=== PATIENT | female | born 1955 | race Caucasian/White ===

== ENCOUNTER 2020-03-12 07:54 | Outpatient (CLI) | payer OTHER, SELFPAY ==
--- NOTE | ~2020-03-12 | US_ITS ---
EXAMINATION: US carotid duplex BI DATE: 03/12/2020 09:09 INDICATION: Carotid stenosis TECHNIQUE: Grayscale, color Doppler, and pulsed Doppler images of the cervical carotid arteries were obtained. The degree of vessel stenosis is placed in one of the following categories: normal, <50%, 5 0-69%, >=70% but less than near-occlusion, near-occlusion, or total occlusion. Note that percent sten osis relative to normal distal artery lumen diameter is indirectly measured from velocity measurement s as described by Saurabh, et al. Radiology 2003; 229:340-346. COMPARISON: 08/22/2019 FINDINGS: RIGHT: The right common carotid artery (CCA) peak systolic velocity (PSV) is 87 cm/s. The right internal car otid artery (ICA) PSV is 140 cm/s. The right ICA end-diastolic velocity (EDV) is 22 cm/s. The right I CA/CCA PSV ratio is 1.6. Grayscale and color Doppler images yield an estimate of 50-69% diameter redu ction from plaque in the ICA. The external carotid artery (ECA) PSV is 149 cm/s. There is antegrade f low in the right vertebral artery. LEFT: The left CCA PSV is 147 cm/s. The left ICA PSV is 135 cm/s. The left ICA EDV is 19 cm/s. The left ICA /CCA PSV ratio is 0.9. Grayscale and color Doppler images yield an estimate of 50-69% diameter reduct ion from plaque in the ICA. The ECA PSV is 303 cm/s. There is antegrade flow in the left vertebral ar aydee. IMPRESSION: 1. 50-69% stenosis in the right internal carotid artery. 2. 50-69% stenosis in the left internal carotid artery. Reviewed, dictated and finalized at location A.
== END 2020-03-12 07:55 | disposition home or self-care (01) ==
LOC: CHSIMG 07:55
PROVIDERS: PCP Internal Medicine; Visit Provider Internal Medicine
DX: I65.23 Occlusion and stenosis of bilateral carotid arteries (principal); M81.0 Age-related osteoporosis without current pathological fracture
CPT/HCPCS: 93880

== ENCOUNTER 2020-03-15 08:47 | Outpatient (CLI) | payer OTHER, SELFPAY ==
--- NOTE | ~2020-03-15 | MM_ITS ---
EXAMINATION: MM screening nadiya BI w silvia HISTORY: Screening mammogram TECHNIQUE: Craniocaudal and mediolateral oblique 3-D tomosynthesis images were obtained and synthetic 2-D images were generated. CAD analysis was submitted and interpreted. COMPARISON: 02/07/2019, 02/04/2018, 02/02/2017 bilateral digital screening mammogram examinations BREAST PARENCHYMAL COMPOSITION: There are scattered areas of fibroglandular density. FINDINGS: There is no evidence of suspicious mass, calcification, or architectural distortion to sugg est malignancy in either breast. There has been no suspicious interval change. IMPRESSION: 1. No mammographic evidence of malignancy. 2. Recommend routine screening mammography in one year. BI-RADS Category 1: Negative Reviewed, dictated and finalized at location A.
--- NOTE | ~2020-03-15 | DEXA_ITS ---
BMD(1) Young-Adult(2) Age-Matched(3) Region (g/cm2) T-score Z-score WHO Classification L1 1.139 0.0 1.7 Normal L2 1.068 -1.2 0.6 Osteopenia L3 1.184 -0.3 1.5 Normal L4 1.008 -1.6 0.1 Osteopenia L1-L4 1.095 -0.8 0.9 Normal Trend: L1-L4 Change vs Change vs Measured Age BMD(1) Baseline Previous Date (years) (g/cm2) (%) (%) 03/15/2020 64.3 1.095 6.4* 2.2 02/04/2018 62.2 1.071 4.1* 4.1* 12/20/2015 [age] 1.029 baseline - * - Indicates significant change based on 95% confidence interval. 1 - Statistically 68% of repeat scans fall within 1SD (+- 0.010 g/cm2 for AP Spine L1-L4) 2 - [place] (Combined NHANES (ages 20-30) / Clipsure (ages 20-40)) AP Spine Reference Population (v112) 3 - Matched for Age, Weight (females 25-100 kg), Ethnic 11 - World Health Organization - Definition of Osteoporosis and Osteopenia for Women: Normal = T-score at or above -1.0 SD; Osteopenia = T-score between -1.0 and -2.5 SD; Osteoporosis = T-score at or below -2.5 SD; (WHO definitions only apply when a young healthy Women reference database is used to determine T-scores.) Printed: 03/15/2020 9:47:45 AM (13.60)76:3.00:50.00:12.0 0.00:10.74 0.60x1.05 19.4:%Fat=27.1% 0.00:0.00 0.00:0.00 Filename: [id number] Scan Mode: Standard;OneScan 37.0 [employer] [id number] BMD(1) Young-Adult(2,7) Age-Matched(3) Region (g/cm2) T-score Z-score WHO Classification Neck Left 0.744 -2.1 -0.6 Osteopenia Right 0.727 -2.2 -0.7 Osteopenia Mean 0.736 -2.2 -0.6 Osteopenia Difference 0.017 -0.1 -0.1 - Total Left 0.730 -2.2 -0.9 Osteopenia Right 0.720 -2.3 -1.0 Osteopenia Mean 0.725 -2.2 -1.0 Osteopenia Difference 0.011 -0.1 -0.1 - Hip [place] Length Comparison (mm) (Right = 101.0 mm) (Mean = 105.2 mm) (Left = 102.4 mm) Trend: Total Mean Change vs Change vs Measured Age BMD(1) Baseline Previous Date (years) (g/cm2) (%) (%) 03/15/2020 64.3 0.725 baseline - 1 - Statistically 68% of repeat scans fall within 1SD (+- 0.010 g/cm2 for DualFemur Total) 2 - [place] (Combined NHANES (ages 20-30) / Clipsure (ages 20-40)) Femur Reference Population (v112) 3 - Matched for Age, Weight (females 25-100 kg), Ethnic 7 - DualFemur Total T-score difference is 0.1. Asymmetry is None. 11 - World Health Organization - Definition of Osteoporosis and Osteopenia for Women: Normal = T-score at or above -1.0 SD; Osteopenia = T-score between -1.0 and -2.5 SD; Osteoporosis = T-score at or below -2.5 SD; (WHO definitions only apply when a young healthy Women reference database is used to determine T-scores.) Printed: 03/15/2020 9:47:46 AM (13.60); Filename: [id number]; Right Femur; 17.0:%Fat=38.5%; Neck Angle (deg)= 67; Scan Mode: Standard 37.0 uGy; Left Femur; 16.7:%Fat=39.3%; Neck Angle (deg)= 56; Scan Mode: Standard 37.0 uGy [employer] [id number] Dear Ibeth Roberson, Your patient Nadeen Hernandez completed a BMD test on 03/15/2020 using the [employer] DXA System (analysis version: 13.60) manufactured by [employer]. The following summarizes the results of our evaluation. PATIENT BIOGRAPHICAL: Name: Nadeen Hernandez
[2020-03-15 09:08] LABS: Appearance Urine Cloudy (Clear); Bilirubin Urine Negative (Negative); Color Urine Yellow (Yellow); Glucose Urine UA Negative (Negative); Ketones Urine Negative (Negative); Leukocyte Esterase Ur 3+ (Negative); Nitrate Urine Negative (Negative); Protein Urine 1+ (Negative)
[2020-03-15 09:21] LABS: Add Urine Microscopic? YES; Bacteria Urine 4+ /hpf; Blood Urine Trace-Intact (Negative); Squamous Epithelial Cell Urine Many /hpf (Few); Trichomonas Urine Present /hpf; WBC Urine 16-20 /hpf (0-3)
[2020-03-15 09:22] LABS: Mucus Urine Few /lpf
[2020-03-15 09:39] LABS: Hemoglobin A1C 5.4 % (<5.7)
[2020-03-15 09:47] LABS: Alanine Aminotransferase 18 U/L (14-59); Albumin Level 4.7 g/dL (3.4-5.0); Alkaline Phosphatase 53 U/L (46-116); Anion Gap 13.6 mmol/L (7-16); Aspartate Amino Transferase 24 U/L (15-37); Bilirubin,Total 0.6 mg/dL (0.00-1.00); Blood Urea Nitrogen 14 mg/dL (7-18); Calcium 9.4 mg/dL (8.5-10.1); Carbon Dioxide 29 mmol/L (21-32); Chloride 95 mmol/L (98-108); Cholesterol 220 mg/dL (0-200); Creatine Kinase 75 U/L (26-192); Estimated Glomerular Filt Rate 55; Glucose 95 mg/dL (70-99); HDL Direct 100 mg/dL (40-60); LDL Cholesterol Calculated 106 mg/dL (<130); Osmolality Calculated 276 mOsm/kg (285-295); Potassium 4.6 mmol/L (3.5-5.1); Sodium 133 mmol/L (136-145); Total Protein 7.9 g/dL (6.4-8.2); Triglycerides 70 mg/dL (0-150)
== END 2020-03-15 08:48 | disposition home or self-care (01) ==
LOC: CHSIMG 08:49
PROVIDERS: PCP Internal Medicine; Visit Provider Internal Medicine
DX: Z12.31 Encounter for screening mammogram for malignant neoplasm of breast (principal); M81.0 Age-related osteoporosis without current pathological fracture; I65.29 Occlusion and stenosis of unspecified carotid artery; I10 Essential (primary) hypertension; R73.01 Impaired fasting glucose
CPT/HCPCS: 36415; 77063; 77067; 77080; 80053; 80061; 81001; 82550; 83036

== ENCOUNTER 2020-09-23 08:29 | Outpatient (CLI) | payer OTHER, SELFPAY ==
[2020-09-23 08:44] LABS: Basophils Absolute Auto 0.05 K/mm3 (0.00-0.10); Basophils Percent Auto 0.5 % (0.0-1.0); Eosinophils Absolute Auto 0.09 K/mm3 (0.02-0.50); Hemoglobin 13.8 g/dL (12.0-15.0); Immature Granulocyte Absolute 0.03 K/mm3 (0.00-0.00); Immature Granulocyte Percent A 0.3 % (0.0-0.0); Lymphocytes Absolute Auto 2.72 K/mm3 (1.10-4.50); Lymphocytes Percent Auto 29.6 % (18.0-42.0); Mean Corpuscular HGB Conc 33.7 g/dL (32.0-36.0); Mean Corpuscular Hemoglobin 31.7 pg (27.0-31.0); Mean Corpuscular Volume 94.3 fL (78.0-102.0); Mean Platelet Volume 9.9 fl (9.2-11.8); Monocytes Absolute Auto 0.58 K/mm3 (0.10-0.90); Monocytes Percent Auto 6.3 % (2.0-11.0); Neutrophils Absolute Auto 5.7 K/mm3 (1.7-7.2); Neutrophils Percent Auto 62.3 % (50.0-70.0); Platelet Count Result 260 K/mm3 (150-420); Red Blood Count 4.35 M/mm3 (4.20-5.40); Red Cell Distribution Width 13.2 % (11.6-14.4); White Blood Count 9.2 K/mm3 (4.8-10.8)
[2020-09-23 08:52] LABS: Appearance Urine Clear (Clear); Bilirubin Urine Negative (Negative); Color Urine Yellow (Yellow); Glucose Urine UA Negative (Negative); Ketones Urine Trace (Negative); Leukocyte Esterase Ur 1+ LEU/UL (Negative); Nitrate Urine Negative (Negative); Protein Urine 1+ (Negative); Specific Grav Ur 1.025 (1.010-1.020); Urobilinogen Urine 0.2 mg/dL (0.2-1.0)
[2020-09-23 08:55] LABS: Hemoglobin A1C 5.1 % (<5.7)
[2020-09-23 09:09] LABS: Add Urine Microscopic? YES; Blood Urine Trace-Intact (Negative); Squamous Epithelial Cell Urine Moderate /hpf (Few); WBC Urine 16-20 /hpf (0-3)
[2020-09-23 09:10] LABS: Bacteria Urine 2+ /hpf; Trichomonas Urine Present /hpf
[2020-09-23 09:40] LABS: Alanine Aminotransferase 18 U/L (14-59); Albumin Level 4.5 g/dL (3.4-5.0); Alkaline Phosphatase 56 U/L (46-116); Anion Gap 11 mmol/L (8-16); Aspartate Amino Transferase 21 U/L (15-37); Bilirubin,Total 0.5 mg/dL (0.00-1.00); Blood Urea Nitrogen 19 mg/dL (7-18); Calcium 9.6 mg/dL (8.5-10.1); Carbon Dioxide 27 mmol/L (21-32); Chloride 97 mmol/L (98-108); Cholesterol 222 mg/dL (0-200); Creatine Kinase 73 U/L (26-192); Estimated Glomerular Filt Rate 51; Glucose 103 mg/dL (70-99); HDL Direct 92 mg/dL (40-60); LDL Cholesterol Calculated 117 mg/dL (<130); Osmolality Calculated 282 mOsm/kg (285-295); Potassium 4.5 mmol/L (3.5-5.1); Sodium 135 mmol/L (136-145); Total Protein 7.9 g/dL (6.4-8.2); Triglycerides 67 mg/dL (0-150)
[2020-09-23 10:07] LABS: Microalbumin Urine Random 394.8 mg/L
[2020-09-23 10:08] LABS: MALB Creatinine Ratio 335.7 mg/g (0-30)
[2020-10-01 13:09] LABS: Vitamin D 25 Hydroxy 44 ng/mL (30-100)
== END 2020-09-23 08:30 | disposition home or self-care (01) ==
LOC: CHSLAB 08:30
PROVIDERS: PCP Internal Medicine; Visit Provider Internal Medicine
DX: E78.5 Hyperlipidemia, unspecified (principal); I10 Essential (primary) hypertension; M81.0 Age-related osteoporosis without current pathological fracture; R73.01 Impaired fasting glucose; R82.90 Unspecified abnormal findings in urine
CPT/HCPCS: 36415; 80053; 80061; 81001; 82043; 82306; 82550; 83036; 85025; 87086

== ENCOUNTER 2021-01-18 08:38 | Outpatient (CLI) | payer OTHER, SELFPAY | END 2021-01-18 08:39 | disposition home or self-care (01) | LOC: CHSCOVIDVC 08:38 | PROVIDERS: PCP Internal Medicine | DX: Z23 Encounter for immunization (principal) | CPT/HCPCS: 0011A; 91301 ==

== ENCOUNTER 2021-02-15 08:38 | Outpatient (CLI) | payer OTHER, SELFPAY | END 2021-02-15 08:39 | disposition home or self-care (01) | LOC: CHSCOVIDVC 08:38 | PROVIDERS: PCP Internal Medicine | DX: Z23 Encounter for immunization (principal) | CPT/HCPCS: 0012A; 91301 ==

== ENCOUNTER 2021-03-18 07:46 | Outpatient (CLI) | payer OTHER, MEDICARE, SELFPAY ==
--- NOTE | ~2021-03-18 | MM_ITS ---
EXAMINATION: MM screening [facility] BI w silvia HISTORY: Screening TECHNIQUE: Craniocaudal and mediolateral oblique 3-D tomosynthesis images were obtained and synthetic 2-D images were generated. CAD analysis was submitted and interpreted. COMPARISON: Comparison to multiple prior studies sequentially, with oldest reviewed study dated 09/2015. BREAST PARENCHYMAL COMPOSITION: There are scattered areas of fibroglandular density. FINDINGS: There is no evidence of suspicious mass, calcification, or architectural distortion to sugg est malignancy in either breast. There has been no suspicious interval change. IMPRESSION: 1. No mammographic evidence of malignancy. 2. Recommend routine screening mammography in one year. BI-RADS Category 1: Negative Reviewed, dictated and finalized at location A.
--- NOTE | ~2021-03-18 | US_ITS ---
EXAMINATION: US carotid duplex BI DATE: 03/18/2021 10:21 INDICATION: Bilateral carotid stenosis TECHNIQUE: Grayscale, color Doppler, and pulsed Doppler images of the cervical carotid arteries were obtained. The degree of vessel stenosis is placed in one of the following categories: normal, <50%, 5 0-69%, >=70% but less than near-occlusion, near-occlusion, or total occlusion. Note that percent sten osis relative to normal distal artery lumen diameter is indirectly measured from velocity measurement s as described by Saurabh, et al. Radiology 2003; 229:340-346. COMPARISON: 03/12/2020 FINDINGS: RIGHT: The right common carotid artery (CCA) peak systolic velocity (PSV) is 72 cm/s. The right internal car otid artery (ICA) PSV is 94 cm/s. The right ICA end-diastolic velocity (EDV) is 12 cm/s. The right IC A/CCA PSV ratio is 1.3. Grayscale and color Doppler images yield an estimate of <50% diameter reducti on from plaque in the ICA. The external carotid artery (ECA) PSV is 123 cm/s. There is antegrade flow in the right vertebral artery. LEFT: The left CCA PSV is 157 cm/s. The left ICA PSV is 130 cm/s. The left ICA EDV is 17 cm/s. The left ICA /CCA PSV ratio is 0.8. Grayscale and color Doppler images yield an estimate of 50-69% diameter reduct ion from plaque in the ICA. The ECA PSV is 190 cm/s. There is antegrade flow in the left vertebral ar aydee. IMPRESSION: 1. <50% stenosis in the right internal carotid artery. 2. 50-69% stenosis in the left internal carotid artery. Reviewed, dictated and finalized at location A.
== END 2021-03-18 07:47 | disposition home or self-care (01) ==
LOC: CHSIMG 07:50
PROVIDERS: PCP Internal Medicine; Visit Provider Internal Medicine
DX: I65.23 Occlusion and stenosis of bilateral carotid arteries (principal); Z12.31 Encounter for screening mammogram for malignant neoplasm of breast
CPT/HCPCS: 77063; 77067; 93880

== ENCOUNTER 2021-03-19 08:09 | Outpatient (CLI) | payer OTHER, MEDICARE, SELFPAY ==
[2021-03-19 08:22] LABS: Add Urine Microscopic? YES; Appearance Urine Sl Cloudy (Clear); Bilirubin Urine Negative (Negative); Blood Urine Negative (Negative); Color Urine Light Yellow (Yellow); Glucose Urine UA Negative (Negative); Ketones Urine Negative (Negative); Leukocyte Esterase Ur 1+ (Negative); Nitrate Urine Negative (Negative); Protein Urine Trace (Negative); Urobilinogen Urine 0.2 mg/dL (0.2-1.0); pH Urine 6.5 (5.0-8.0)
[2021-03-19 08:42] LABS: Hemoglobin A1C 5.4 % (<5.7)
[2021-03-19 08:43] LABS: Bacteria Urine 2+ /hpf; RBC Urine 0-2 /hpf (0-2); Squamous Epithelial Cell Urine Moderate /hpf (Few); Trichomonas Urine Present /hpf
[2021-03-19 08:46] LABS: Creatinine Urine 59.92 mg/dL (40-278)
[2021-03-19 08:47] LABS: MALB Creatinine Ratio 203.4 mg/g (0-30); Microalbumin Urine Random 121.9 mg/L
[2021-03-19 09:33] LABS: Alanine Aminotransferase 19 U/L (14-59); Albumin Level 4.2 g/dL (3.4-5.0); Alkaline Phosphatase 49 U/L (46-116); Anion Gap 11 mmol/L (8-16); Aspartate Amino Transferase 38 U/L (15-37); Bilirubin,Total 0.7 mg/dL (0.00-1.00); Blood Urea Nitrogen 14 mg/dL (7-18); Calcium 9.2 mg/dL (8.5-10.1); Carbon Dioxide 27 mmol/L (21-32); Chloride 97 mmol/L (98-108); Cholesterol 204 mg/dL (0-200); Creatine Kinase 64 U/L (26-192); Estimated Glomerular Filt Rate 55; Free T4 Free Thyroxine 1.17 ng/dL (0.76-1.46); Glucose 102 mg/dL (70-99); HDL Direct 94 mg/dL (40-60); LDL Cholesterol Calculated 97 mg/dL (<130); Osmolality Calculated 280 mOsm/kg (285-295); Potassium 4.4 mmol/L (3.5-5.1); Sodium 135 mmol/L (136-145); Thyroid Stimulating Hormone 0.83 uIU/mL (0.36-3.74); Total Protein 7.3 g/dL (6.4-8.2); Triglycerides 67 mg/dL (0-150)
[2021-03-22 12:52] LABS: Vitamin D 25 Hydroxy 48 ng/mL (30-100)
== END 2021-03-19 08:10 | disposition home or self-care (01) ==
LOC: CHSLAB 08:11
PROVIDERS: PCP Internal Medicine; Visit Provider Internal Medicine
DX: R73.01 Impaired fasting glucose (principal); I12.9 Hypertensive chronic kidney disease with stage 1 through stage 4 chronic kidney disease, or unspecified chronic kidney disease; E78.2 Mixed hyperlipidemia; M81.0 Age-related osteoporosis without current pathological fracture; N18.1 Chronic kidney disease, stage 1; E03.4 Atrophy of thyroid (acquired)
CPT/HCPCS: 36415; 80053; 80061; 81001; 82043; 82306; 82550; 83036; 84439; 84443

== ENCOUNTER 2021-10-14 08:55 | Outpatient (CLI) | payer MEDICARE, OTHER, SELFPAY ==
[2021-10-14 09:36] LABS: Basophils Absolute Auto 0.05 K/mm3 (0.00-0.10); Basophils Percent Auto 0.6 % (0.0-1.0); Eosinophils Absolute Auto 0.17 K/mm3 (0.02-0.50); Eosinophils Percent Auto 1.9 % (1.0-6.0); Hematocrit 43.9 % (35.0-42.0); Hemoglobin 14.6 g/dL (11.7-13.8); Immature Granulocyte Absolute 0.04 K/mm3 (0.00-0.00); Immature Granulocyte Percent A 0.4 % (0.0-0.0); Lymphocytes Absolute Auto 3.01 K/mm3 (1.10-4.50); Lymphocytes Percent Auto 33.6 % (18.0-42.0); Mean Corpuscular HGB Conc 33.3 g/dL (32.0-36.0); Mean Corpuscular Hemoglobin 30.8 pg (27.0-31.0); Mean Corpuscular Volume 92.6 fL (78.0-102.0); Mean Platelet Volume 10.5 fl (9.2-11.8); Monocytes Absolute Auto 0.56 K/mm3 (0.10-0.90); Monocytes Percent Auto 6.3 % (2.0-11.0); Neutrophils Absolute Auto 5.1 K/mm3 (1.7-7.2); Neutrophils Percent Auto 57.2 % (50.0-70.0); Platelet Count Result 282 K/mm3 (150-420); Red Blood Count 4.74 M/mm3 (4.20-5.40); Red Cell Distribution Width 14.1 % (11.6-14.4)
[2021-10-14 09:39] LABS: Add Urine Microscopic? YES; Appearance Urine Clear (Clear); Bilirubin Urine Negative (Negative); Blood Urine Negative (Negative); Color Urine Light Yellow (Yellow); Glucose Urine UA Negative (Negative); Ketones Urine Negative (Negative); Leukocyte Esterase Ur 1+ (Negative); Nitrate Urine Negative (Negative); Protein Urine 1+ (Negative); Urobilinogen Urine 0.2 mg/dL (0.2-1.0); pH Urine 6.5 (5.0-8.0)
[2021-10-14 09:47] LABS: Hemoglobin A1C 5.5 % (<5.7)
[2021-10-14 10:00] LABS: RBC Urine 0-2 /hpf (0-2)
[2021-10-14 10:01] LABS: Bacteria Urine 1+ /hpf; Squamous Epithelial Cell Urine Few /hpf (Few); Trichomonas Urine Present /hpf
[2021-10-14 10:10] LABS: Alanine Aminotransferase 17 U/L (14-59); Albumin Level 4.4 g/dL (3.4-5.0); Alkaline Phosphatase 68 U/L (46-116); Anion Gap 10 mmol/L (8-16); Aspartate Amino Transferase 19 U/L (15-37); Bilirubin,Total 0.6 mg/dL (0.00-1.00); Blood Urea Nitrogen 18 mg/dL (7-18); Calcium 9.3 mg/dL (8.5-10.1); Carbon Dioxide 27 mmol/L (21-32); Chloride 99 mmol/L (98-108); Cholesterol 218 mg/dL (0-200); Creatine Kinase 61 U/L (26-192); Estimated Glomerular Filt Rate 43; Free T4 Free Thyroxine 1.09 ng/dL (0.76-1.46); Glucose 102 mg/dL (70-99); HDL Direct 74 mg/dL (40-60); LDL Cholesterol Calculated 126 mg/dL (<130); Osmolality Calculated 283 mOsm/kg (285-295); Potassium 4.4 mmol/L (3.5-5.1); Sodium 136 mmol/L (136-145); Thyroid Stimulating Hormone 1.69 uIU/mL (0.36-3.74); Total Protein 7.8 g/dL (6.4-8.2); Triglycerides 90 mg/dL (0-150)
[2021-10-18 14:44] LABS: Vitamin D 25 Hydroxy 47 ng/mL (30-100)
== END 2021-10-14 08:56 | disposition home or self-care (01) ==
LOC: CHSLAB 08:57
PROVIDERS: PCP Internal Medicine; Visit Provider Internal Medicine
DX: E78.2 Mixed hyperlipidemia (principal); I10 Essential (primary) hypertension; R73.01 Impaired fasting glucose; M81.0 Age-related osteoporosis without current pathological fracture
CPT/HCPCS: 36415; 80053; 80061; 81001; 82306; 82550; 83036; 84439; 84443; 84481; 85025

== ENCOUNTER 2021-11-26 10:34 | Outpatient (CLI) | payer MEDICARE, OTHER, SELFPAY ==
[2021-11-26 11:32] LABS: Anion Gap 11 mmol/L (8-16); Blood Urea Nitrogen 16 mg/dL (7-18); Calcium 9.2 mg/dL (8.5-10.1); Carbon Dioxide 27 mmol/L (21-32); Chloride 94 mmol/L (98-108); Estimated Glomerular Filt Rate 47; Glucose 118 mg/dL (70-99); Osmolality Calculated 276 mOsm/kg (285-295); Potassium 4.3 mmol/L (3.5-5.1); Sodium 132 mmol/L (136-145)
== END 2021-11-26 10:35 | disposition home or self-care (01) ==
LOC: CHSLAB 10:36
PROVIDERS: PCP Internal Medicine; Visit Provider Internal Medicine
DX: E86.0 Dehydration (principal)
CPT/HCPCS: 36415; 80048

== ENCOUNTER 2021-12-26 10:08 | Outpatient (CLI) | payer MEDICARE, OTHER, SELFPAY ==
[2021-12-26 11:19] LABS: Anion Gap 9 mmol/L (8-16); Blood Urea Nitrogen 17 mg/dL (7-18); Calcium 9.6 mg/dL (8.5-10.1); Carbon Dioxide 28 mmol/L (21-32); Chloride 97 mmol/L (98-108); Estimated Glomerular Filt Rate 44; Glucose 102 mg/dL (70-99); Osmolality Calculated 279 mOsm/kg (285-295); Potassium 4.4 mmol/L (3.5-5.1); Sodium 134 mmol/L (136-145)
== END 2021-12-26 10:09 | disposition home or self-care (01) ==
LOC: CHSLAB 10:09
PROVIDERS: PCP Internal Medicine; Visit Provider Internal Medicine
DX: E86.0 Dehydration (principal)
CPT/HCPCS: 36415; 80048

== ENCOUNTER 2022-01-08 10:33 | Outpatient (CLI) | payer MEDICARE, OTHER, SELFPAY ==
[2022-01-08 11:31] LABS: Anion Gap 10 mmol/L (8-16); Blood Urea Nitrogen 17 mg/dL (7-18); Calcium 9.5 mg/dL (8.5-10.1); Carbon Dioxide 26 mmol/L (21-32); Chloride 96 mmol/L (98-108); Estimated Glomerular Filt Rate 47; Glucose 96 mg/dL (70-99); Osmolality Calculated 275 mOsm/kg (285-295); Potassium 4.5 mmol/L (3.5-5.1); Sodium 132 mmol/L (136-145)
[2022-01-08 11:52] LABS: Erythrocyte Sedimentation Rate 18 mm/hr (0-20)
[2022-01-11 01:22] LABS: Kappa\\Lambda Light Chains 1.39 (0.26-1.65); Lambda Light Chain 18.1 mg/L (5.7-26.3)
[2022-01-11 20:21] LABS: Complement Total CH50 50 U/mL (31-60)
[2022-01-14 16:07] LABS: Albumin 4.8 g/dL (3.8-4.8); Alpha 1 Globulin 0.3 g/dL (0.2-0.3); Alpha 2 Globulin 0.8 g/dL (0.5-0.9); Beta 1 Globulin 0.5 g/dL (0.4-0.6); Protein, Total 7.7 g/dL (6.1-8.1)
== END 2022-01-08 10:34 | disposition home or self-care (01) ==
LOC: CHSLAB 10:35
PROVIDERS: PCP Internal Medicine; Visit Provider Internal Medicine
DX: I12.9 Hypertensive chronic kidney disease with stage 1 through stage 4 chronic kidney disease, or unspecified chronic kidney disease (principal); N18.31 Chronic kidney disease, stage 3a
CPT/HCPCS: 36415; 80048; 83883; 84155; 84165; 85652; 86038; 86162; 86334

== ENCOUNTER 2022-01-12 08:49 | Outpatient (CLI) | payer MEDICARE, OTHER, SELFPAY ==
--- NOTE | ~2022-01-12 | US_ITS ---
EXAMINATION: US retroperitoneal duplex ltd, US renal BI DATE: 01/12/2022 09:31 INDICATION: Stage III chronic kidney disease. TECHNIQUE: 1. Multiple grayscale and color Doppler images of the kidneys were obtained. 2. Multiple grayscale and pulsed Doppler images of the aorta and renal arteries were obtained. COMPARISON: None. FINDINGS: Kidneys: The right kidney measures 8.0 x 3.0 x 4.1 cm. The left kidney measures 10.2 x 5.6 x 4.5 cm. Diffuse b ilateral mild increased renal cortical echogenicity consistent with medical renal disease. There is n o hydronephrosis in either kidney. No stones identified. The bladder is normal. Renal arteries/vascular: The aorta peak systolic velocity is 57 cm/s. The right renal artery peak systolic velocity is 78 cm/s in the proximal segment, 83 cm/s in the mid segment, and 60 cm/s in the distal segment. The left javier al artery peak systolic velocity is 207 cm/s in the proximal segment, 186 cm/s in the mid segment, an d 148 cm/s in the distal segment. IMPRESSION: 1. Bilateral increased renal cortical echogenicity consistent with medical renal disease. No hydronep hrosis. 2. Elevated peak systolic velocities in the proximal left renal artery consistent with stenosis of >5 0-60%. Reviewed, dictated and finalized at location B. IMPRESSION: 1. Bilateral increased renal cortical echogenicity consistent with medical vick l disease. No hydronephrosis. 2. Elevated peak systolic velocities in the proximal left renal artery consiste nt with stenosis of >50-60%.
== END 2022-01-12 08:50 | disposition home or self-care (01) ==
LOC: CHSIMG 08:52
PROVIDERS: PCP Internal Medicine; Visit Provider Internal Medicine
DX: I12.9 Hypertensive chronic kidney disease with stage 1 through stage 4 chronic kidney disease, or unspecified chronic kidney disease (principal); N18.30 Chronic kidney disease, stage 3 unspecified
CPT/HCPCS: 76775; 93976

== ENCOUNTER 2022-03-26 07:52 | Outpatient (CLI) | payer MEDICARE, OTHER, SELFPAY ==
--- NOTE | ~2022-03-26 | US_ITS ---
EXAMINATION: US carotid duplex BI DATE: 03/26/2022 09:55 INDICATION: History of bilateral carotid stenosis. TECHNIQUE: Grayscale, color Doppler, and pulsed Doppler images of the cervical carotid arteries were obtained. The degree of vessel stenosis is placed in one of the following categories: normal, <50%, 5 0-69%, >=70% but less than near-occlusion, near-occlusion, or total occlusion. Note that percent sten osis relative to normal distal artery lumen diameter is indirectly measured from velocity measurement s as described by Saurabh, et al. Radiology 2003; 229:340-346. Notes: Normal: Peak systolic velocity <125 centimeters/sec and no plaque <50%. Peak systolic velocity <125 ( EDV <40; ICA/CCA PSV ratio <2.0; used these factors only a tandem lesions or low cardiac output or co ntralateral disease) 50-69 %: PSV 125-230 (EDV 40-100; ratio 2-4) >= 70% but less than near occlusion: PSV greater than 230 (EDV > 100; ratio> 4.0) Near Occlusion: PSV that is variable; markedly narrowed lumen Occlusion: Absent flow on color/spectral Doppler and no lumen on krause scale. COMPARISON: None. FINDINGS: RIGHT: The right common carotid artery (CCA) peak systolic velocity (PSV) is 84 cm/s. The right internal car otid artery (ICA) PSV is 125 cm/s. The right ICA end-diastolic velocity (EDV) is 24 cm/s. The right I CA/CCA PSV ratio is 1.5. The external carotid artery (ECA) PSV is 95 cm/s. There is antegrade flow in the right vertebral artery. LEFT: The left CCA PSV is 87 cm/s. The left ICA PSV is 238 cm/s. The left ICA EDV is 28 cm/s. The left ICA/ CCA PSV ratio is 2.7. The ECA PSV is 156 cm/s. There is antegrade flow in the left vertebral artery. IMPRESSION: 1. 50-69% stenosis in the right internal carotid artery by sonographic criteria. 2. Greater than or equal to 70% stenosis in the left internal carotid artery by sonographic criteria. Reviewed, dictated and finalized at location A. IMPRESSION: 1. 50-69% stenosis in the right internal carotid artery by sonographic criteria . 2. Greater than or equal to 70% stenosis in the left internal carotid artery by sonographic criteria.
--- NOTE | ~2022-03-26 | DEXA_ITS ---
Bone Density Report Name: MISHEL OJEDA Age: 66 Sex: Female Ethnicity: White Date of : 1955 Indication: postmenopausal; screening for osteoporosis; parental hip fracture; hysterectomy; Referring Provider: Ibeth Roberson Study: Bone densitometry was performed. Exam Date: March 26, 2022 Accession number: [id number] Bone Density: Region BMD T-score Z-score Classification AP Spine(L1, L2, L3) 0.940 -0.7 1.1 Normal Femoral Neck (Left) 0.575 -2.5 -0.9 Osteoporosis Total Hip (Left) 0.639 -2.5 -1.2 Osteoporosis Femoral Neck (Right) 0.464 -3.5 -1.9 Osteoporosis Total Hip (Right) 0.622 -2.6 -1.3 Osteoporosis Femoral Neck Mean 0.520 -3.0 -1.4 Osteoporosis Total Hip Mean 0.630 -2.6 -1.3 Osteoporosis World Health Organization criteria for BMD impression classify patients as: Normal (T-score at or above -1.0), Osteopenia (T-score between -1.0 and -2.5), or Osteoporosis (T-score at or below -2.5). 10-year Fracture Risk: FRAX not reported because: Some T-score for Spine Total or Hip Total or Femoral Neck at or below -2.5 Treated for osteoporosis Clinical Information Provided by Patient: Parent has had a hip fracture Smokes Is being treated for osteoporosis Has used the following medications: Fosamax (i.e. alendronate), Vitamin D Has the following medical conditions: Hysterectomy Patient maximum height was 64 Menopause Age: 42 No regular weight bearing exercise Drinks caffeinated beverages Onset of menses at age 15 Number of children 2 Impression: The patient has osteoporosis, based on the Right Femoral Neck T-score. The patient has risk factors, including: parental hip fracture, smoking. Discussion: It is important to ask patients whether they are taking their medications and to encourage continued and appropriate compliance with their osteoporosis therapies to reduce fracture risk. It is also important to review their risk factors and encourage appropriate calcium and vitamin D intakes, exercise, fall prevention and other lifestyle measures. Follow-Up: Consider a repeat BMD and Vertebral Fracture Assessment (VFA) exam in 2 years or sooner if medically necessary, to reassess this patient's status. Reported by: Dr. Cedrick Reed on 03/26/2022 8:32:00 AM. Reviewed, dictated and finalized at location A. [facility]
--- NOTE | ~2022-03-26 | MM_ITS ---
EXAMINATION: MM screening nadiya BI w silvia HISTORY: Screening TECHNIQUE: Craniocaudal and mediolateral oblique 3-D tomosynthesis images were obtained and synthetic 2-D images were generated. CAD analysis was submitted and interpreted. COMPARISON: Comparison to multiple prior studies sequentially, with oldest reviewed study dated 09/2015. BREAST PARENCHYMAL COMPOSITION: There are scattered areas of fibroglandular density. FINDINGS: There is no evidence of suspicious mass, calcification, or architectural distortion to sugg est malignancy in either breast. There has been no suspicious interval change. IMPRESSION: 1. No mammographic evidence of malignancy. 2. Recommend routine screening mammography in one year. BI-RADS Category 1: Negative Reviewed, dictated and finalized at location A.
== END 2022-03-26 07:53 | disposition home or self-care (01) ==
LOC: CHSIMG 07:54
PROVIDERS: PCP Internal Medicine; Visit Provider Internal Medicine
DX: M81.0 Age-related osteoporosis without current pathological fracture (principal); I65.23 Occlusion and stenosis of bilateral carotid arteries; Z12.31 Encounter for screening mammogram for malignant neoplasm of breast
CPT/HCPCS: 77063; 77067; 77080; 93880

== ENCOUNTER 2022-04-03 08:10 | Outpatient (CLI) | payer MEDICARE, OTHER, SELFPAY ==
[2022-04-03 08:26] LABS: Basophils Absolute Auto 0.04 K/mm3 (0.00-0.10); Basophils Percent Auto 0.5 % (0.0-1.0); Eosinophils Absolute Auto 0.12 K/mm3 (0.02-0.50); Eosinophils Percent Auto 1.5 % (1.0-6.0); Hematocrit 39.9 % (35.0-42.0); Hemoglobin 13.5 g/dL (11.7-13.8); Immature Granulocyte Absolute 0.03 K/mm3 (0.00-0.00); Immature Granulocyte Percent A 0.4 % (0.0-0.0); Lymphocytes Absolute Auto 2.32 K/mm3 (1.10-4.50); Lymphocytes Percent Auto 28.4 % (18.0-42.0); Mean Corpuscular HGB Conc 33.8 g/dL (32.0-36.0); Mean Corpuscular Hemoglobin 30.9 pg (27.0-31.0); Mean Corpuscular Volume 91.3 fL (78.0-102.0); Mean Platelet Volume 9.8 fl (9.2-11.8); Monocytes Absolute Auto 0.63 K/mm3 (0.10-0.90); Monocytes Percent Auto 7.7 % (2.0-11.0); Neutrophils Percent Auto 61.5 % (50.0-70.0); Platelet Count Result 260 K/mm3 (150-420); Red Blood Count 4.37 M/mm3 (4.20-5.40); Red Cell Distribution Width 13.5 % (11.6-14.4); White Blood Count 8.2 K/mm3 (4.8-10.8)
[2022-04-03 08:27] LABS: Add Urine Microscopic? YES; Appearance Urine Clear (Clear); Bilirubin Urine Negative (Negative); Blood Urine Negative (Negative); Color Urine Light Yellow (Yellow); Glucose Urine UA Negative (Negative); Ketones Urine Negative (Negative); Leukocyte Esterase Ur 1+ (Negative); Nitrate Urine Negative (Negative); Protein Urine Negative (Negative); Urobilinogen Urine 0.2 mg/dL (0.2-1.0)
[2022-04-03 08:38] LABS: Bacteria Urine 1+ /hpf; RBC Urine None seen /hpf (0-2); Squamous Epithelial Cell Urine Few /hpf (Few)
[2022-04-03 08:39] LABS: Trichomonas Urine Present /hpf
[2022-04-03 08:43] LABS: Creatinine Urine 32.44 mg/dL (40-278); Microalbumin Urine Random 67.8 mg/L
[2022-04-03 09:10] LABS: Alanine Aminotransferase 16 U/L (14-59); Albumin Level 4.5 g/dL (3.4-5.0); Alkaline Phosphatase 58 U/L (46-116); Anion Gap 9 mmol/L (8-16); Aspartate Amino Transferase 22 U/L (15-37); Bilirubin,Total 0.6 mg/dL (0.00-1.00); Blood Urea Nitrogen 15 mg/dL (7-18); Calcium 9.3 mg/dL (8.5-10.1); Carbon Dioxide 28 mmol/L (21-32); Chloride 96 mmol/L (98-108); Cholesterol 217 mg/dL (0-200); Creatine Kinase 64 U/L (26-192); Estimated Glomerular Filt Rate 47; Free T4 Free Thyroxine 1.25 ng/dL (0.76-1.46); Glucose 102 mg/dL (70-99); HDL Direct 97 mg/dL (40-60); LDL Cholesterol Calculated 106 mg/dL (<130); Osmolality Calculated 276 mOsm/kg (285-295); Potassium 4.6 mmol/L (3.5-5.1); Sodium 133 mmol/L (136-145); Thyroid Stimulating Hormone 1.03 uIU/mL (0.36-3.74); Total Protein 7.6 g/dL (6.4-8.2); Triglycerides 71 mg/dL (0-150)
[2022-04-03 09:16] LABS: Hemoglobin A1C 5.1 % (<5.7)
[2022-04-08 17:45] LABS: Vitamin D 25 Hydroxy 51 ng/mL (30-100)
== END 2022-04-03 08:11 | disposition home or self-care (01) ==
LOC: CHSLAB 08:13
PROVIDERS: PCP Internal Medicine; Visit Provider Internal Medicine
DX: E78.2 Mixed hyperlipidemia (principal); R73.01 Impaired fasting glucose; I12.9 Hypertensive chronic kidney disease with stage 1 through stage 4 chronic kidney disease, or unspecified chronic kidney disease; N18.2 Chronic kidney disease, stage 2 (mild); M81.0 Age-related osteoporosis without current pathological fracture; E03.4 Atrophy of thyroid (acquired)
CPT/HCPCS: 36415; 80053; 80061; 81001; 82043; 82306; 82550; 83036; 84439; 84443; 85025

== ENCOUNTER 2022-04-28 13:18 | Outpatient (CLI) | payer MEDICARE, OTHER, SELFPAY ==
[2022-04-28] MEDS: DENOSUMAB 60 MG/ML SYRINGE SUB-Q (13:32)
[2022-04-28 13:34] VITALS: BMI 22.8
[2022-04-28 13:35] VITALS: BP 138/78; PULSE 74; RESP 14; TEMP 36.1; O2SAT 98
--- NOTE | 2022-04-28 13:36 | PC.NURSE ---
Patient here for Prolia injection. Education given. Concerns Answered. Prolia injection SC administered see NOV. Tolerated well. Safe exit of hospital. Will return in 6 months- Dr. Roberson will need to send an order.
== END 2022-04-28 13:19 | disposition home or self-care (01) ==
LOC: CHSTREATRM 13:20
PROVIDERS: PCP Internal Medicine; Visit Provider Internal Medicine
DX: M81.0 Age-related osteoporosis without current pathological fracture (principal)
CPT/HCPCS: 96372; J0897

== ENCOUNTER 2022-10-19 08:41 | Outpatient (CLI) | payer MEDICARE, SELFPAY ==
[2022-10-19 08:59] LABS: Basophils Absolute Auto 0.05 K/mm3 (0.00-0.10); Basophils Percent Auto 0.6 % (0.0-1.0); Eosinophils Absolute Auto 0.15 K/mm3 (0.02-0.50); Eosinophils Percent Auto 1.9 % (1.0-6.0); Hematocrit 39.5 % (35.0-42.0); Hemoglobin 13.1 g/dL (11.7-13.8); Immature Granulocyte Absolute 0.03 K/mm3 (0.00-0.00); Immature Granulocyte Percent A 0.4 % (0.0-0.0); Lymphocytes Absolute Auto 2.43 K/mm3 (1.10-4.50); Lymphocytes Percent Auto 30.6 % (18.0-42.0); Mean Corpuscular HGB Conc 33.2 g/dL (32.0-36.0); Mean Corpuscular Hemoglobin 30.3 pg (27.0-31.0); Mean Corpuscular Volume 91.2 fL (78.0-102.0); Mean Platelet Volume 10.1 fl (9.2-11.8); Monocytes Absolute Auto 0.61 K/mm3 (0.10-0.90); Monocytes Percent Auto 7.7 % (2.0-11.0); Neutrophils Absolute Auto 4.7 K/mm3 (1.7-7.2); Neutrophils Percent Auto 58.8 % (50.0-70.0); Platelet Count Result 254 K/mm3 (150-420); Red Blood Count 4.33 M/mm3 (4.20-5.40); Red Cell Distribution Width 13.4 % (11.6-14.4)
[2022-10-19 09:00] LABS: Add Urine Microscopic? YES; Appearance Urine Clear (Clear); Bilirubin Urine Negative (Negative); Blood Urine Negative (Negative); Color Urine Light Yellow (Yellow); Glucose Urine UA Negative (Negative); Ketones Urine Negative (Negative); Leukocyte Esterase Ur 1+ (Negative); Nitrate Urine Negative (Negative); Protein Urine 1+ (Negative); Specific Grav Ur 1.015 (1.010-1.020); Urobilinogen Urine 0.2 mg/dL (0.2-1.0)
[2022-10-19 09:05] LABS: RBC Urine None seen /hpf (0-2)
[2022-10-19 09:06] LABS: Bacteria Urine Trace /hpf; Squamous Epithelial Cell Urine Few /hpf (Few); Trichomonas Urine Present /hpf
[2022-10-19 09:20] LABS: Hemoglobin A1C 5.4 % (<5.7)
[2022-10-19 09:27] LABS: Alanine Aminotransferase 15 U/L (14-59); Albumin Level 4.3 g/dL (3.4-5.0); Alkaline Phosphatase 56 U/L (46-116); Anion Gap 9 mmol/L (8-16); Aspartate Amino Transferase 18 U/L (15-37); Bilirubin,Total 0.5 mg/dL (0.00-1.00); Blood Urea Nitrogen 14 mg/dL (7-18); Calcium 9.1 mg/dL (8.5-10.1); Carbon Dioxide 29 mmol/L (21-32); Chloride 97 mmol/L (98-108); Cholesterol 197 mg/dL (0-200); Creatine Kinase 78 U/L (26-192); Estimated Glomerular Filt Rate 42; Glucose 111 mg/dL (70-99); HDL Direct 78 mg/dL (40-60); LDL Cholesterol Calculated 104 mg/dL (<130); Osmolality Calculated 281 mOsm/kg (285-295); Potassium 4.4 mmol/L (3.5-5.1); Sodium 135 mmol/L (136-145); Total Protein 7.4 g/dL (6.4-8.2); Triglycerides 75 mg/dL (0-150)
== END 2022-10-19 08:42 | disposition home or self-care (01) ==
PROVIDERS: PCP Internal Medicine; Visit Provider Internal Medicine
DX: E78.2 Mixed hyperlipidemia (principal); I10 Essential (primary) hypertension; M81.0 Age-related osteoporosis without current pathological fracture; N18.2 Chronic kidney disease, stage 2 (mild); R73.01 Impaired fasting glucose
CPT/HCPCS: 36415; 80053; 80061; 81001; 82550; 83036; 85025; 87661

== ENCOUNTER 2022-11-04 09:44 | Outpatient (CLI) | payer MEDICARE, SELFPAY ==
[2022-11-04 09:59] LABS: Basophils Absolute Auto 0.05 K/mm3 (0.00-0.10); Basophils Percent Auto 0.6 % (0.0-1.0); Eosinophils Absolute Auto 0.11 K/mm3 (0.02-0.50); Eosinophils Percent Auto 1.4 % (1.0-6.0); Hematocrit 40.3 % (35.0-42.0); Hemoglobin 13.6 g/dL (11.7-13.8); Immature Granulocyte Absolute 0.03 K/mm3 (0.00-0.00); Immature Granulocyte Percent A 0.4 % (0.0-0.0); Lymphocytes Absolute Auto 2.51 K/mm3 (1.10-4.50); Lymphocytes Percent Auto 30.9 % (18.0-42.0); Mean Corpuscular HGB Conc 33.7 g/dL (32.0-36.0); Mean Corpuscular Hemoglobin 30.8 pg (27.0-31.0); Mean Corpuscular Volume 91.4 fL (78.0-102.0); Mean Platelet Volume 9.9 fl (9.2-11.8); Monocytes Absolute Auto 0.65 K/mm3 (0.10-0.90); Neutrophils Absolute Auto 4.8 K/mm3 (1.7-7.2); Neutrophils Percent Auto 58.7 % (50.0-70.0); Platelet Count Result 291 K/mm3 (150-420); Red Blood Count 4.41 M/mm3 (4.20-5.40); Red Cell Distribution Width 13.5 % (11.6-14.4); White Blood Count 8.1 K/mm3 (4.8-10.8)
[2022-11-04 10:54] LABS: Alanine Aminotransferase 16 U/L (14-59); Albumin Level 4.4 g/dL (3.4-5.0); Alkaline Phosphatase 51 U/L (46-116); Anion Gap 11 mmol/L (8-16); Aspartate Amino Transferase 25 U/L (15-37); Bilirubin,Total 0.6 mg/dL (0.00-1.00); Blood Urea Nitrogen 19 mg/dL (7-18); Calcium 9.4 mg/dL (8.5-10.1); Carbon Dioxide 26 mmol/L (21-32); Chloride 93 mmol/L (98-108); Estimated Glomerular Filt Rate 38; Glucose 110 mg/dL (70-99); Osmolality Calculated 273 mOsm/kg (285-295); Potassium 4.4 mmol/L (3.5-5.1); Sodium 130 mmol/L (136-145); Total Protein 7.5 g/dL (6.4-8.2)
[2022-11-04 11:03] LABS: HIV 1 P24 AG Negative (Negative); HIV 1/2 AB Negative (Negative)
[2022-11-07 12:12] LABS: RPR Screen Non-Reactive (Non-Reactive)
[2022-11-08 20:20] LABS: Hepatitis A Antibody IgM Nonreactive; Hepatitis B Core Antibody Nonreactive (Nonreactive); Hepatitis B Surface Antigen Nonreactive (Nonreactive); Hepatitis C Signal to Cutoff 0.01 ratio (<1.00); Hepatitis C Virus Antibody Nonreactive (Nonreactive)
== END 2022-11-04 09:45 | disposition home or self-care (01) ==
LOC: CHSLAB 09:46
PROVIDERS: PCP Internal Medicine; Visit Provider Nurse Practitioner Family
DX: N76.0 Acute vaginitis (principal); Z72.51 High risk heterosexual behavior; R53.83 Other fatigue
CPT/HCPCS: 36415; 80053; 80074; 85025; 86592; 86703

== ENCOUNTER 2022-11-26 10:15 | Outpatient (CLI) | payer MEDICARE, SELFPAY ==
[2022-11-26 11:05] LABS: Alanine Aminotransferase 19 U/L (14-59); Albumin Level 4.4 g/dL (3.4-5.0); Alkaline Phosphatase 54 U/L (46-116); Anion Gap 12 mmol/L (8-16); Aspartate Amino Transferase 28 U/L (15-37); Bilirubin,Total 0.6 mg/dL (0.00-1.00); Blood Urea Nitrogen 19 mg/dL (7-18); Calcium 9.2 mg/dL (8.5-10.1); Carbon Dioxide 27 mmol/L (21-32); Chloride 95 mmol/L (98-108); Estimated Glomerular Filt Rate 41; Glucose 99 mg/dL (70-99); Osmolality Calculated 280 mOsm/kg (285-295); Potassium 4.3 mmol/L (3.5-5.1); Sodium 134 mmol/L (136-145); Total Protein 8.2 g/dL (6.4-8.2)
== END 2022-11-26 10:16 | disposition home or self-care (01) ==
LOC: CHSLAB 10:16
PROVIDERS: PCP Internal Medicine; Visit Provider Internal Medicine
DX: I10 Essential (primary) hypertension (principal); A59.9 Trichomoniasis, unspecified
CPT/HCPCS: 36415; 80053; 87661

== ENCOUNTER 2023-02-10 09:50 | Outpatient (CLI) | payer MEDICARE, SELFPAY ==
[2023-02-10 10:43] LABS: Creatinine Urine 30.89 mg/dL (40-278); Sodium Urine Random 35 mmol/L (20-110); Total Protein Urine Random 31.1 mg/dL (0.0-11.9); Ur Ttl Prot Creatinine Ratio 1.01 mg/mg (0-0.20)
[2023-02-10 11:04] LABS: Albumin Level 4.3 g/dL (3.4-5.0); Anion Gap 10 mmol/L (8-16); Blood Urea Nitrogen 16 mg/dL (7-18); Calcium 9.2 mg/dL (8.5-10.1); Carbon Dioxide 28 mmol/L (21-32); Chloride 94 mmol/L (98-108); Estimated Glomerular Filt Rate 39; Glucose 107 mg/dL (70-99); Osmolality Calculated 275 mOsm/kg (285-295); Phosphorus 4.5 mg/dL (2.6-4.7); Potassium 4.5 mmol/L (3.5-5.1); Sodium 132 mmol/L (136-145)
[2023-02-14 13:50] LABS: Albumin 4.5 g/dL (3.8-4.8); Alpha 1 Globulin 0.3 g/dL (0.2-0.3); Alpha 2 Globulin 0.7 g/dL (0.5-0.9); Beta 1 Globulin 0.4 g/dL (0.4-0.6); Protein, Total 7.2 g/dL (6.1-8.1)
[2023-02-15 12:34] LABS: Anti Glomerular Basement Memb <1.0 AI (<1.0)
[2023-02-16 21:19] LABS: Complement C3 92 mg/dL (83-193)
[2023-02-16 22:31] LABS: Creatinine, Random Urine 34 mg/dL (20-275); Total Protein/Creatinine Ratio 912 mg/g creat (24-184)
[2023-02-18 01:14] LABS: ANCA Screen Negative (Negative)
== END 2023-02-10 09:51 | disposition home or self-care (01) ==
LOC: CHSLAB 09:54
PROVIDERS: PCP Internal Medicine Nephrology; Visit Provider Internal Medicine Nephrology
DX: I10 Essential (primary) hypertension (principal); N18.32 Chronic kidney disease, stage 3b
CPT/HCPCS: 36415; 80069; 82570; 83520; 84155; 84156; 84165; 84166; 84300; 86036; 86038; 86160; 86225

== ENCOUNTER 2023-05-13 08:57 | Outpatient (CLI) | payer MEDICARE, SELFPAY ==
[2023-05-13 09:11] LABS: Appearance Urine Clear (Clear); Basophils Absolute Auto 0.04 K/mm3 (0.00-0.10); Basophils Percent Auto 0.5 % (0.0-1.0); Bilirubin Urine Negative (Negative); Blood Urine Negative (Negative); Color Urine Light Yellow (Yellow); Eosinophils Absolute Auto 0.11 K/mm3 (0.02-0.50); Eosinophils Percent Auto 1.4 % (1.0-6.0); Glucose Urine UA Negative (Negative); Hematocrit 39.1 % (35.0-42.0); Hemoglobin 13.3 g/dL (11.7-13.8); Immature Granulocyte Absolute 0.02 K/mm3 (0.00-0.00); Immature Granulocyte Percent A 0.3 % (0.0-0.0); Ketones Urine Negative (Negative); Leukocyte Esterase Ur 2+ LEU/UL (Negative); Lymphocytes Absolute Auto 2.21 K/mm3 (1.10-4.50); Mean Corpuscular Hemoglobin 30.8 pg (27.0-31.0); Mean Corpuscular Volume 90.5 fL (78.0-102.0); Mean Platelet Volume 10.2 fl (9.2-11.8); Monocytes Absolute Auto 0.56 K/mm3 (0.10-0.90); Monocytes Percent Auto 7.1 % (2.0-11.0); Neutrophils Absolute Auto 4.9 K/mm3 (1.7-7.2); Neutrophils Percent Auto 62.7 % (50.0-70.0); Nitrate Urine Negative (Negative); Platelet Count Result 260 K/mm3 (150-420); Protein Urine 2+ (Negative); Red Blood Count 4.32 M/mm3 (4.20-5.40); Red Cell Distribution Width 14.3 % (11.6-14.4); Specific Grav Ur 1.015 (1.010-1.020); White Blood Count 7.9 K/mm3 (4.8-10.8)
[2023-05-13 09:23] LABS: Add Urine Microscopic? YES; RBC Urine 0-2 /hpf (0-2)
[2023-05-13 09:24] LABS: Bacteria Urine 1+ /hpf; Squamous Epithelial Cell Urine Moderate /hpf (Few); WBC Urine 21-30 /hpf (0-3)
[2023-05-13 09:41] LABS: Hemoglobin A1C 5.5 % (<5.7)
[2023-05-13 09:48] LABS: Alanine Aminotransferase 14 U/L (14-59); Albumin Level 4.1 g/dL (3.4-5.0); Alkaline Phosphatase 57 U/L (46-116); Anion Gap 8 mmol/L (8-16); Aspartate Amino Transferase 20 U/L (15-37); Bilirubin,Total 0.6 mg/dL (0.00-1.00); Blood Urea Nitrogen 16 mg/dL (7-18); Calcium 9.3 mg/dL (8.5-10.1); Carbon Dioxide 30 mmol/L (21-32); Chloride 97 mmol/L (98-108); Cholesterol 194 mg/dL (0-200); Creatine Kinase 73 U/L (26-192); Estimated Glomerular Filt Rate 42; Glucose 103 mg/dL (70-99); HDL Direct 85 mg/dL (40-60); LDL Cholesterol Calculated 95 mg/dL (<130); Osmolality Calculated 281 mOsm/kg (285-295); Potassium 4.5 mmol/L (3.5-5.1); Sodium 135 mmol/L (136-145); Total Protein 7.2 g/dL (6.4-8.2); Triglycerides 69 mg/dL (0-150)
== END 2023-05-13 08:58 | disposition home or self-care (01) ==
LOC: CHSLAB 08:59
PROVIDERS: PCP Internal Medicine; Visit Provider Internal Medicine
DX: E78.5 Hyperlipidemia, unspecified (principal); I10 Essential (primary) hypertension; N39.0 Urinary tract infection, site not specified; R73.01 Impaired fasting glucose
CPT/HCPCS: 36415; 80053; 80061; 81001; 82550; 83036; 85025; 87077; 87086; 87088; 87186

== ENCOUNTER 2023-06-15 09:37 | Outpatient (CLI) | payer MEDICARE, SELFPAY ==
[2023-06-15 10:08] LABS: Creatinine Urine 30.98 mg/dL (40-278); Total Protein Urine Random 26.1 mg/dL (0.0-11.9); Ur Ttl Prot Creatinine Ratio 0.84 mg/mg (0-0.20)
[2023-06-15 10:29] LABS: Albumin Level 4.3 g/dL (3.4-5.0); Anion Gap 11 mmol/L (8-16); Blood Urea Nitrogen 17 mg/dL (7-18); Calcium 9.7 mg/dL (8.5-10.1); Carbon Dioxide 25 mmol/L (21-32); Chloride 97 mmol/L (98-108); Estimated Glomerular Filt Rate 46; Glucose 104 mg/dL (70-99); Osmolality Calculated 277 mOsm/kg (285-295); Phosphorus 4.3 mg/dL (2.6-4.7); Potassium 4.2 mmol/L (3.5-5.1); Sodium 133 mmol/L (136-145)
[2023-06-17 18:55] LABS: Parathyroid Intact 26 pg/mL (14-64)
[2023-06-19 14:34] LABS: Vitamin D 25 Hydroxy 54 ng/mL (30-100)
== END 2023-06-15 09:38 | disposition home or self-care (01) ==
PROVIDERS: PCP Internal Medicine; Visit Provider Internal Medicine Nephrology
DX: E55.9 Vitamin D deficiency, unspecified (principal); I12.9 Hypertensive chronic kidney disease with stage 1 through stage 4 chronic kidney disease, or unspecified chronic kidney disease; N25.81 Secondary hyperparathyroidism of renal origin; N18.32 Chronic kidney disease, stage 3b
CPT/HCPCS: 36415; 80069; 82306; 82570; 83970; 84156

== ENCOUNTER 2023-06-25 10:33 | Outpatient (CLI) | payer MEDICARE, SELFPAY ==
[2023-06-25 10:45] VITALS: BMI 21.6
[2023-06-25] MEDS: DENOSUMAB 60 MG/ML SYRINGE SUB-Q (10:51)
[2023-06-25 11:09] VITALS: BP 140/64; PULSE 72; RESP 12; TEMP 36.6; O2SAT 98
--- NOTE | 2023-06-25 11:11 | PC.NURSE ---
Patient here for q 6 month Prolia injection. Education give. No concerns voiced. Injection administered. SEE MAR. Tolerated well. Safe exit of hospital per self/amb. Instructed will be getting a call in 6 months to scheduled next injection.
== END 2023-06-25 10:34 | disposition home or self-care (01) ==
LOC: CHSTREATRM 10:35
PROVIDERS: PCP Internal Medicine; Visit Provider Internal Medicine
DX: M81.0 Age-related osteoporosis without current pathological fracture (principal)
CPT/HCPCS: 96372; J0897

== ENCOUNTER 2023-10-29 09:27 | Outpatient (CLI) | payer MEDICARE, SELFPAY ==
[2023-10-29 09:56] LABS: Total Protein Urine Random 46.2 mg/dL (0.0-11.9); Ur Ttl Prot Creatinine Ratio 1.17 mg/mg (0-0.20)
[2023-10-29 10:17] LABS: Albumin Level 4.3 g/dL (3.4-5.0); Anion Gap 12 mmol/L (8-16); Blood Urea Nitrogen 18 mg/dL (7-18); Calcium 8.9 mg/dL (8.5-10.1); Carbon Dioxide 25 mmol/L (21-32); Chloride 96 mmol/L (98-108); Estimated Glomerular Filt Rate 51; Glucose 96 mg/dL (70-99); Osmolality Calculated 277 mOsm/kg (285-295); Phosphorus 3.9 mg/dL (2.6-4.7); Potassium 4.8 mmol/L (3.5-5.1); Sodium 133 mmol/L (136-145)
== END 2023-10-29 09:28 | disposition home or self-care (01) ==
LOC: CHSLAB 09:28
PROVIDERS: PCP Internal Medicine; Visit Provider Internal Medicine Nephrology
DX: I12.9 Hypertensive chronic kidney disease with stage 1 through stage 4 chronic kidney disease, or unspecified chronic kidney disease (principal); N18.31 Chronic kidney disease, stage 3a
CPT/HCPCS: 36415; 80069; 82570; 84156

== ENCOUNTER 2023-11-16 08:47 | Outpatient (CLI) | payer MEDICARE, SELFPAY ==
[2023-11-16 09:04] LABS: Appearance Urine Clear (Clear); Basophils Absolute Auto 0.05 K/mm3 (0.00-0.10); Basophils Percent Auto 0.6 % (0.0-1.0); Bilirubin Urine Negative (Negative); Blood Urine Negative (Negative); Color Urine Light Yellow (Yellow); Eosinophils Percent Auto 1.3 % (1.0-6.0); Glucose Urine UA Negative (Negative); Hematocrit 38.4 % (35.0-42.0); Immature Granulocyte Absolute 0.03 K/mm3 (0.00-0.00); Immature Granulocyte Percent A 0.4 % (0.0-0.0); Ketones Urine Negative (Negative); Leukocyte Esterase Ur Trace LEU/UL (Negative); Lymphocytes Absolute Auto 2.24 K/mm3 (1.10-4.50); Lymphocytes Percent Auto 28.9 % (18.0-42.0); Mean Corpuscular HGB Conc 33.9 g/dL (32.0-36.0); Mean Corpuscular Hemoglobin 30.3 pg (27.0-31.0); Mean Corpuscular Volume 89.5 fL (78.0-102.0); Mean Platelet Volume 9.6 fl (9.2-11.8); Monocytes Absolute Auto 0.76 K/mm3 (0.10-0.90); Monocytes Percent Auto 9.8 % (2.0-11.0); Neutrophils Absolute Auto 4.6 K/mm3 (1.7-7.2); Nitrate Urine Positive (Negative); Platelet Count Result 286 K/mm3 (150-420); Protein Urine 1+ (Negative); Red Blood Count 4.29 M/mm3 (4.20-5.40); Red Cell Distribution Width 13.7 % (11.6-14.4); White Blood Count 7.8 K/mm3 (4.8-10.8); pH Urine 6.5 (5.0-8.0)
[2023-11-16 09:10] LABS: Add Urine Microscopic? YES; Bacteria Urine 3+ /hpf; RBC Urine None seen /hpf (0-2); Squamous Epithelial Cell Urine Moderate /hpf (Few); WBC Urine 0-3 /hpf (0-3)
[2023-11-16 09:12] LABS: Hemoglobin A1C 5.1 % (<5.7)
[2023-11-16 10:00] LABS: Alanine Aminotransferase 18 U/L (14-59); Albumin Level 4.2 g/dL (3.4-5.0); Alkaline Phosphatase 47 U/L (46-116); Anion Gap 10 mmol/L (8-16); Aspartate Amino Transferase 22 U/L (15-37); Bilirubin,Total 0.5 mg/dL (0.00-1.00); Blood Urea Nitrogen 19 mg/dL (7-18); Calcium 9.2 mg/dL (8.5-10.1); Carbon Dioxide 27 mmol/L (21-32); Chloride 94 mmol/L (98-108); Cholesterol 209 mg/dL (0-200); Creatine Kinase 84 U/L (26-192); Estimated Glomerular Filt Rate 44; Glucose 109 mg/dL (70-99); HDL Direct 103 mg/dL (40-60); LDL Cholesterol Calculated 97 mg/dL (<130); Osmolality Calculated 275 mOsm/kg (285-295); Potassium 4.5 mmol/L (3.5-5.1); Sodium 131 mmol/L (136-145); Total Protein 7.3 g/dL (6.4-8.2); Triglycerides 44 mg/dL (0-150)
== END 2023-11-16 08:48 | disposition home or self-care (01) ==
LOC: CHSLAB 08:49
PROVIDERS: PCP Internal Medicine; Visit Provider Internal Medicine
DX: N39.0 Urinary tract infection, site not specified (principal); I10 Essential (primary) hypertension; E78.2 Mixed hyperlipidemia; R73.01 Impaired fasting glucose
CPT/HCPCS: 36415; 80053; 80061; 81001; 82550; 83036; 85025; 87077; 87086; 87088; 87186

== ENCOUNTER 2023-12-28 09:48 | Outpatient (CLI) | payer MEDICARE, SELFPAY ==
[2023-12-28 10:00] VITALS: BP 214/83; PULSE 79; RESP 16; TEMP 36.4; O2SAT 98
[2023-12-28] MEDS: DENOSUMAB 60 MG/ML SYRINGE SUB-Q (10:11)
--- NOTE | 2023-12-28 10:18 | PC.NURSE ---
1000 Pt ambulated to floor without difficulty. 1015 Patient tolerated injection well and ambulated to elevator without difficulty.
== END 2023-12-28 09:49 | disposition home or self-care (01) ==
LOC: CHSTREATRM 09:51
PROVIDERS: PCP Internal Medicine; Visit Provider Internal Medicine
DX: M81.0 Age-related osteoporosis without current pathological fracture (principal)
CPT/HCPCS: 96372; J0897

== ENCOUNTER 2024-01-06 07:50 | Outpatient (CLI) | payer MEDICARE, SELFPAY ==
--- NOTE | ~2024-01-06 | DEXA_ITS ---
? Bone Density Report? Name:? MISHEL OJEDA Patient ID:??? [id number] Age:? 68 Sex:? Female Ethnicity:? White Date of : 1955 Indication: postmenopausal; screening for osteoporosis; parental hip fracture; height loss; hysterectomy; Referring Provider: Ibeth Roberson Study: Bone densitometry was performed. Exam Date: January 06, 2024 Accession number: [id number] Bone Density: Region? BMD ???T-score? Z-score?? Classification AP Spine(L1, L2, L3)? 0.939?? -0.7?1.2? Normal Femoral Neck (Left)? 0.555?? -2.6? -1.0? Osteoporosis Total Hip (Left)? 0.628?? -2.6? -1.2? Osteoporosis Femoral Neck (Right)? 0.546?? -2.7? -1.0? Osteoporosis Total Hip (Right)? 0.646?? -2.4? -1.0? Osteopenia Femoral Neck Mean? 0.551?? -2.7? -1.0? Osteoporosis Total Hip Mean?0.637?? -2.5? -1.1? Osteoporosis World Health Organization criteria for BMD impression classify patients as: Normal (T-score at or above -1.0), Osteopenia (T-score between -1.0 and -2.5), or Osteoporosis (T-score at or below -2.5). 10-year Fracture Risk: FRAX not reported because: ? Some T-score for Spine Total or Hip Total or Femoral Neck at or below -2.5 ? Treated for osteoporosis Clinical Information Provided by Patient: Parent has had a hip fracture Smokes Is being treated for osteoporosis Has used the following medications: Fosamax (i.e. alendronate), Prolia (i.e. denosumab), Vitamin D Has the following medical conditions: Hysterectomy Patient maximum height was 64 Menopause Age: 42 No regular weight bearing exercise Drinks caffeinated beverages Onset of menses at age 15 Number of children 2 Impression: The patient has osteoporosis, based on the Right Femoral Neck T- score. The patient has risk factors, including: parental hip fracture, smoking. Discussion: It is important to ask patients whether they are taking their medications and to encourage continued and appropriate compliance with their osteoporosis therapies to reduce fracture risk. It is also important to review their risk factors and encourage appropriate calcium and vitamin D intakes, exercise, fall prevention and other lifestyle measures. Follow-Up: Consider a repeat BMD and Vertebral Fracture Assessment (VFA) exam in 2 years or sooner if medically necessary, to reassess this patient's status. Reported by: Dr. Cedrick Reed on 01/07/2024 2:25:00 PM. KIMBERLY
--- NOTE | ~2024-01-06 | MM_ITS ---
EXAMINATION: MM screening nadiya BI w silvia HISTORY: Screening TECHNIQUE: Craniocaudal and mediolateral oblique 3-D tomosynthesis images were obtained and synthetic 2-D images were generated. CAD analysis was submitted and interpreted. COMPARISON: Comparison to multiple prior studies sequentially, with oldest reviewed study dated 03/18. BREAST PARENCHYMAL COMPOSITION: Not dense: There are scattered areas of fibroglandular density. FINDINGS: There is no evidence of suspicious mass, calcification, or architectural distortion to sugg est malignancy in either breast. There has been no suspicious interval change. IMPRESSION: 1. No mammographic evidence of malignancy. 2. Recommend routine screening mammography in one year. BI-RADS Category 1: Negative Reviewed, dictated and finalized at location A.
== END 2024-01-06 07:51 | disposition home or self-care (01) ==
LOC: CHSIMG 07:51
PROVIDERS: PCP Internal Medicine; Visit Provider Internal Medicine
DX: Z12.31 Encounter for screening mammogram for malignant neoplasm of breast (principal); Z78.0 Asymptomatic menopausal state; M85.88 Other specified disorders of bone density and structure, other site; M81.0 Age-related osteoporosis without current pathological fracture
CPT/HCPCS: 77063; 77067; 77080

== ENCOUNTER 2024-03-03 09:06 | Outpatient (CLI) | payer MEDICARE, SELFPAY ==
[2024-03-03 13:46] LABS: Albumin Level 4.1 g/dL (3.4-5.0); Anion Gap 10 mmol/L (4-12); Blood Urea Nitrogen 15 mg/dL (7-18); Calcium 9.2 mg/dL (8.5-10.1); Carbon Dioxide 28 mmol/L (21-32); Chloride 100 mmol/L (98-108); Estimated Glomerular Filt Rate 48; Glucose 90 mg/dL (70-99); Osmolality Calculated 286 mOsm/kg (285-295); Phosphorus 4.4 mg/dL (2.6-4.7); Potassium 4.3 mmol/L (3.5-5.1); Sodium 138 mmol/L (136-145)
[2024-03-03 13:54] LABS: Total Protein Urine Random 33.7 mg/dL (0.0-11.9); Ur Ttl Prot Creatinine Ratio 0.78 mg/mg (0-0.20)
[2024-03-04 12:34] LABS: Parathyroid Intact 26 pg/mL (16-77)
[2024-03-05 02:44] LABS: Vitamin D 25 Hydroxy 54 ng/mL (30-100)
== END 2024-03-03 09:07 | disposition home or self-care (01) ==
LOC: CHSLAB 09:07
PROVIDERS: PCP Internal Medicine; Visit Provider Internal Medicine Nephrology
DX: I12.9 Hypertensive chronic kidney disease with stage 1 through stage 4 chronic kidney disease, or unspecified chronic kidney disease (principal); N25.81 Secondary hyperparathyroidism of renal origin; N18.31 Chronic kidney disease, stage 3a; E55.9 Vitamin D deficiency, unspecified
CPT/HCPCS: 36415; 80069; 82306; 82570; 83970; 84156

== ENCOUNTER 2024-05-26 08:53 | Outpatient (CLI) | payer MEDICARE, SELFPAY ==
[2024-05-26 09:16] LABS: Basophils Absolute Auto 0.06 K/mm3 (0.00-0.10); Basophils Percent Auto 0.7 % (0.0-1.0); Eosinophils Absolute Auto 0.09 K/mm3 (0.02-0.50); Hematocrit 40.3 % (35.0-42.0); Hemoglobin 13.8 g/dL (11.7-13.8); Immature Granulocyte Absolute 0.04 K/mm3 (0.00-0.00); Immature Granulocyte Percent A 0.4 % (0.0-0.0); Lymphocytes Absolute Auto 1.54 K/mm3 (1.10-4.50); Lymphocytes Percent Auto 17.3 % (18.0-42.0); Mean Corpuscular HGB Conc 34.2 g/dL (32-36); Mean Corpuscular Hemoglobin 30.8 pg (27.0-31.0); Mean Platelet Volume 9.6 fl (9.2-11.8); Monocytes Absolute Auto 0.71 K/mm3 (0.10-0.90); Neutrophils Absolute Auto 6.46 K/mm3 (1.70-7.20); Neutrophils Percent Auto 72.6 % (50.0-70.0); Platelet Count Result 304 K/mm3 (150-420); Red Blood Count 4.48 M/mm3 (4.20-5.40); Red Cell Distribution Width 14.3 % (11.6-14.4); White Blood Count 8.9 K/mm3 (4.8-10.8)
[2024-05-26 09:38] LABS: Color Urine Yellow (Yellow)
[2024-05-26 09:39] LABS: Appearance Urine Clear (Clear); Blood Urine Negative (Negative); Glucose Urine UA Negative (Negative); Ketones Urine Trace (Negative); Nitrate Urine Negative (Negative); Protein Urine 2+ (Negative); Specific Grav Ur 1.015 (1.010-1.020); pH Urine 6.5 (5.0-8.0)
[2024-05-26 09:40] LABS: Add Urine Microscopic? YES; Bacteria Urine Rare /hpf; Bilirubin Urine Negative (Negative); Leukocyte Esterase Ur Negative (Negative); RBC Urine None seen /hpf (0-2); Squamous Epithelial Cell Urine Moderate /hpf (Few); Urobilinogen Urine Normal mg/dL (0.2-1.0); WBC Urine None seen /hpf (0-3)
[2024-05-26 14:53] LABS: Alanine Aminotransferase 13 U/L (6-35); Albumin Level 4.5 g/dL (3.5-5.1); Alkaline Phosphatase 62 U/L (38-126); Anion Gap 11 mmol/L (4-12); Aspartate Amino Transferase 28 U/L (14-36); Bilirubin,Total 0.6 mg/dL (0.2-1.3); Blood Urea Nitrogen 11 mg/dL (7-17); Calcium 9.6 mg/dL (8.4-10.2); Carbon Dioxide 28 mmol/L (22-30); Chloride 91 mmol/L (98-107); Cholesterol 175 mg/dL (0-200); Creatine Kinase 51 U/L (30-135); Estimated Glomerular Filt Rate 55; Glucose 95 mg/dL (65-110); HDL Direct 109 mg/dL; LDL Cholesterol Calculated 51 mg/dL (<130); Osmolality Calculated 269 mOsm/kg (285-295); Potassium 4.7 mmol/L (3.4-5.0); Sodium 130 mmol/L (137-145); Triglycerides 74 mg/dL (<150)
[2024-05-26 15:11] LABS: Hemoglobin A1C 5.3 % (<5.7)
[2024-05-26 15:22] LABS: Creatinine Urine 78.3 mg/dL
[2024-05-26 15:56] LABS: MALB Creatinine Ratio 510.9 mg/g (0-30); Microalbumin Urine Random > 400.0 mg/L (0-16.7)
== END 2024-05-26 08:54 | disposition home or self-care (01) ==
LOC: CHSLAB 08:58
PROVIDERS: PCP Internal Medicine; Visit Provider Internal Medicine
DX: I12.9 Hypertensive chronic kidney disease with stage 1 through stage 4 chronic kidney disease, or unspecified chronic kidney disease (principal); E78.2 Mixed hyperlipidemia; R73.01 Impaired fasting glucose; N18.2 Chronic kidney disease, stage 2 (mild)
CPT/HCPCS: 36415; 80053; 80061; 81001; 82043; 82550; 83036; 85025

== ENCOUNTER 2024-06-08 10:10 | Outpatient (CLI) | payer MEDICARE, SELFPAY ==
--- NOTE | ~2024-06-08 | XR_ITS ---
EXAMINATION: XR chest 2V DATE: 06/08/2024 10:56 INDICATION: Wheezing. Chronic obstructive pulmonary disease. TECHNIQUE: Frontal and lateral views of the chest were obtained. COMPARISON: Chest 2 views 12/17/2015 FINDINGS: There is no pneumonia, pleural effusion, or pneumothorax. The heart size is normal. There i s an old healed fracture of proximal right humerus. IMPRESSION: 1. No acute cardiopulmonary disease. Reviewed, dictated and finalized at location A.
== END 2024-06-08 10:11 | disposition home or self-care (01) ==
LOC: CHSIMG 10:12
PROVIDERS: PCP Internal Medicine; Visit Provider Internal Medicine
DX: J44.1 Chronic obstructive pulmonary disease with (acute) exacerbation (principal)
CPT/HCPCS: 71046

== ENCOUNTER 2024-06-27 10:25 | Outpatient (CLI) | payer MEDICARE, SELFPAY ==
[2024-06-27] MEDS: DENOSUMAB 60 MG/ML SYRINGE SUB-Q (10:50)
[2024-06-27 10:52] VITALS: BP 159/70; PULSE 78; RESP 14; TEMP 36.6; O2SAT 98
--- NOTE | 2024-06-27 11:25 | PC.NURSE ---
Patient here for every 6 month Prolia injection. Education given. Reports didn't have any problems with last 3 Prolia injections. Injection administered. SEE MAR/patient care notes. Tolerated well.
[2024-06-27 11:26] VITALS: BP 130/88; PULSE 72; RESP 14; O2SAT 98
[2024-06-27 11:42] LABS: Anion Gap 11 mmol/L (4-12); Blood Urea Nitrogen 12 mg/dL (7-18); Calcium 9.3 mg/dL (8.5-10.1); Carbon Dioxide 27 mmol/L (21-32); Chloride 94 mmol/L (98-108); Estimated CRCL calculation 36 ml/min; Estimated Glomerular Filt Rate 49; Glucose 92 mg/dL (70-99); Osmolality Calculated 273 mOsm/kg (285-295); Potassium 4.5 mmol/L (3.5-5.1); Sodium 132 mmol/L (136-145)
== END 2024-06-27 11:27 | disposition home or self-care (01) ==
PROVIDERS: PCP Internal Medicine; Visit Provider Internal Medicine
DX: M81.0 Age-related osteoporosis without current pathological fracture (principal); E87.1 Hypo-osmolality and hyponatremia
CPT/HCPCS: 36415; 80048; 96372; J0897

== ENCOUNTER 2024-07-26 09:29 | Outpatient (CLI) | payer MEDICARE, SELFPAY ==
[2024-07-26 10:51] LABS: Anion Gap 9 mmol/L (4-12); Blood Urea Nitrogen 10 mg/dL (7-18); Calcium 9.9 mg/dL (8.5-10.1); Carbon Dioxide 30 mmol/L (21-32); Chloride 95 mmol/L (98-108); Estimated Glomerular Filt Rate 48; Glucose 190 mg/dL (70-99); Osmolality Calculated 282 mOsm/kg (285-295); Potassium 4.9 mmol/L (3.5-5.1); Sodium 134 mmol/L (136-145)
== END 2024-07-26 09:30 | disposition home or self-care (01) ==
PROVIDERS: PCP Internal Medicine; Visit Provider Internal Medicine
DX: E87.1 Hypo-osmolality and hyponatremia (principal)
CPT/HCPCS: 36415; 80048

== ENCOUNTER 2024-11-23 08:30 | Outpatient (CLI) | payer MEDICARE, SELFPAY ==
[2024-11-23 08:46] LABS: Basophils Absolute Auto 0.06 K/mm3 (0.00-0.10); Basophils Percent Auto 0.7 % (0.0-1.0); Eosinophils Absolute Auto 0.13 K/mm3 (0.02-0.50); Eosinophils Percent Auto 1.5 % (1.0-6.0); Hematocrit 40.1 % (35.0-42.0); Hemoglobin 12.9 g/dL (11.7-13.8); Immature Granulocyte Absolute 0.02 K/mm3 (0.00-0.00); Immature Granulocyte Percent A 0.2 % (0.0-0.0); Lymphocytes Absolute Auto 2.84 K/mm3 (1.10-4.50); Lymphocytes Percent Auto 32.1 % (18.0-42.0); Mean Corpuscular HGB Conc 32.2 g/dL (32-36); Mean Corpuscular Volume 93.3 fL (78.0-102.0); Mean Platelet Volume 9.5 fl (9.2-11.8); Monocytes Absolute Auto 0.52 K/mm3 (0.10-0.90); Monocytes Percent Auto 5.9 % (2.0-11.0); Neutrophils Absolute Auto 5.27 K/mm3 (1.70-7.20); Neutrophils Percent Auto 59.6 % (50.0-70.0); Platelet Count Result 292 K/mm3 (150-420); Red Cell Distribution Width 13.5 % (11.6-14.4); White Blood Count 8.8 K/mm3 (4.8-10.8)
--- OUTSIDE RECORDS SUMMARY | 2024-11-23 08:51 | XMS_ITS | Clinical Summary ---
Author Organization [facility] Address [address] [place] [address] Care Team Providers Care Fur Vault Attendant Name Role Phone Ibeth Roberson MD Primary Care Provider [phone] Alexandro Coffey MD Unavailable Unavailabl e Allergies Active Allergy Reactions Criticality Noted Date Comments Amlodipine Swelling 01/21/2022 Spironolactone Unknown 01/21/2022 Sulfa Antibiotics Unknown 06/04/2023 Medications SPIRIVA HANDIHALER 18 MCG inhalation capsule INHALE CONTENTS OF 1 CAPSULE BY MOUTH EVERY DAY 01/05/2022 Active hydrALAZINE 50 MG tablet Take 1 tablet (50 mg total) by mouth 2 (two) times daily with meals. 01/15/2022 Active losartan 100 MG tablet Take 1 tablet (100 mg total) by mouth daily. 11/25/2021 Active nebivolol 20 MG tablet Take 1 tablet (20 mg total) by mouth daily. 11/10/2021 Active aspirin EC (ECOTRIN) 81 MG tablet Take 1 tablet (81 mg total) by mouth daily. Active cetirizine (ZYRTEC) 10 MG tablet Take 1 tablet (10 mg total) by mouth daily. 10/29/2022 Active fluticasone propionate (FLONASE) 50 MCG/ACT nasal spray INSTILL 2 SPRAYS INTO EACH NOSTRIL TWICE DAILY FOR 1WK, THEN 2 SPRAYS TO EACH NOSTRIL AT NIGHT 10/29/2022 Active denosumab (PROLIA) 60 MG/ML injection Inject 1 mL (60 mg total) into the skin. Active atorvastatin (LIPITOR) 40 MG tablet 06/03/2023 Active Vitamin D3 (VITAMIN D) 50 mcg tablet Take 1 tablet (50 mcg total) by mouth daily. Active Active Problems Problem Noted Date Diagnosed Date Uncontrolled hypertension 01/21/2022 Family History Medical History Relation Comments Hyperlipidemia Father Hypertension Father Stroke Father Hypertension Mother Osteoporosis Mother Relation Status Comments Brother Father (Age 84) Maternal Grandfather Maternal Grandmother Mother (Age 87) Paternal Grandfather Paternal Grandmother Social History Tobacco Use Types Packs/Day Years Used Date Smoking Tobacco: Every Day Cigarettes Smokeless Tobacco: Never Tobacco Cessation:Ready to Q uit: Not Asked; Counseling Given: Not Answered Alcohol Use Standard Drinks/Week Comments Yes 0 (1 standard drink = 0.6 oz pur e alcohol) socially Comments No Sex and Gender Information Value Date Recorded Sex Assigned at Not on file Legal Sex Female 3:00 PM CDT Gender Identity Not on file Sexual Orientation Not on file Occupation Industry Job Start Date Job End Date Not on file Not on file Not on file Not on file Last Filed Vital Signs Vital Sign Reading Time Taken Comments Blood Pressure 193/52 06/09/2023 3:08 PM CDT Pulse 64 06/09/2023 3:08 PM CDT Temperature 36.9 C (98.4 F) 06/09/2023 3:08 PM CDT Respiratory Rate 18 06/09/2023 3:08 PM CDT Oxygen Saturation 97% 06/09/2023 3:08 PM CDT Inhaled Oxygen Concentration - - Weight 57.2 kg (126 lb) 06/04/2023 2:13 PM CDT Height 162.6 cm (5' 4 ) 06/04/2023 2:13 PM CDT Body Mass Index 21.63 06/04/2023 2:13 PM CDT Plan of Treatment Health Maintenance Due Date Last Done Comments Colorectal Cancer Screening Colonoscopy (10 Years) 1955 Hepatitis C 1973 Mammogram Screening 1995 Annual Medicare Wellness Visit 2020 Dexa Scan (General) 2020 Zoster Vaccines (3 of 3) 11/28/2020 021, 11/21/2015 Pneumococcal Vaccine: 65+ Years (3 of 3 - PPSV23 or PCV20) 02/24/2023 02/24/2018, 11/21/2015 COVID-19 Vaccine (3 - 2023-2 5 season) 2024 02/15/2021, 01/18/2021 Influenza Adult (#1) 2024 06/04/2020, 08/19/2017, 07/09/2016 DTaP, Tdap and Td Vaccines ( 2 - Td or Tdap) 11/20/2025 11/21/2015 RSV Immunization or 60+ Years (1 - 1-dose 75+ series) 2030 Meningococcal B Vaccine Aged Out No l onger eligible based on patient's age to complete this topic Meningococcal Vaccine Aged Out No osmel dennis eligible based on patient's age to complete this topic RSV Immunizations Under 20 Months Aged Out No longer eligible b ased on patient's age to complete this topic Medical Devices Implanted Type Area Quality Assurance Engineer Device Identifier Shelf Expiration Date Model / Serial / Lot Libertad Dcb00 22.0 Implanted:Qty: 1 on 06/09/2023 by Betty Bui MD at [facility] Right: Eye [id number] 10/31/2025 DCB00 / [id number] / [id number] Insurance AET[employer] Advance Directives * Full Code (Latest Code Status on File) Date Activated Date Inactivated Comments 06/09/2023 2:59 PM 06/09/2023 5:43 PM Care Teams Fur Vault Attendant Relationship Specialty Start Date End Date Ibeth Roberson MD [address] [place] [id number] PCP - General INTERNAL MEDICINE 01/19/22 Alexandro Coffey MD [address] [place] [address] [place] Parcel Wrapper CARDIOVASCULAR DISEASE 01/19/22
--- OUTSIDE RECORDS SUMMARY | 2024-11-23 08:51 | XMS_ITS | Encounter Summary ---
Author Organization [facility] Address [address] [place] [address] Care Team Providers Care Pool Nurse Name Role Phone Ibeth Roberson MD Primary Care Provider [phone] Alexandro Coffey MD Unavailable Unavailabl e Encounter Details Date Type Department Care Team (Late st Contact Info) Description 01/20/2022 [facility] [address] [place] [id number] Alexandro Coffey MD Social History Tobacco Use Types Packs/Day Years Used Date Smoking Tobacco: Every Day Cigarettes Smokeless Tobacco: Never Tobacco Cessation:Ready to Q uit: Not Asked; Counseling Given: Not Answered Alcohol Use Standard Drinks/Week Comments Yes 0 (1 standard drink = 0.6 oz pur e alcohol) 1 glass of wine daily Comments Unknown Sex and Gender Information Value Date Recorded Sex Assigned at Not on file Legal Sex Female 3:00 PM CDT Gender Identity Not on file Sexual Orientation Not on file Occupation Industry Job Start Date Job End Date Not on file Not on file Not on file Not on file COVID-19 Exposure Response Date Recorded In the last 10 days, have yo u been in contact with someone who was confirmed or suspected to have Coronavirus/COVID-19? No / Unsure 01/21/2022 8:51 AM CDT documented as of this encounter Plan of Treatment Not on file documented as of this encounter Visit Diagnoses Not on filedocumented in this encounter Care Teams Pool Nurse Relationship Specialty Start Date End Date Ibeth Roberson MD [address] [place] [phone] PCP - General INTERNAL MEDICINE 01/19/22 Alexandro Coffey MD [address] [place] [address] [place] Bitumastic Applier CARDIOVASCULAR DISEASE 01/19/22 documented as of this encounter
[2024-11-23 08:55] LABS: Add Urine Microscopic? YES; Appearance Urine Clear (Clear); Bilirubin Urine Negative (Negative); Blood Urine Negative (Negative); Color Urine Light Yellow (Yellow); Glucose Urine UA Negative (Negative); Ketones Urine Negative (Negative); Leukocyte Esterase Ur Negative LEU/UL (Negative); Nitrate Urine Negative (Negative); Protein Urine 2+ (Negative); pH Urine 6.5 (5.0-8.0)
[2024-11-23 09:00] LABS: Hemoglobin A1C 5.3 % (<5.7)
[2024-11-23 09:04] LABS: Creatinine Urine 103.79 mg/dL (40-278)
[2024-11-23 09:05] LABS: Bacteria Urine Trace /hpf; RBC Urine None seen /hpf (0-2); Squamous Epithelial Cell Urine Many /hpf (Few); WBC Urine None seen /hpf (0-3)
[2024-11-23 09:07] LABS: MALB Creatinine Ratio 385.3 mg/g (0-30); Microalbumin Urine Random > 400.0 mg/L
[2024-11-23 09:27] LABS: Alanine Aminotransferase 15 U/L (14-59); Albumin Level 4.3 g/dL (3.4-5.0); Alkaline Phosphatase 82 U/L (46-116); Anion Gap 11 mmol/L (4-12); Aspartate Amino Transferase 22 U/L (15-37); Bilirubin,Total 0.6 mg/dL (0.00-1.00); Blood Urea Nitrogen 18 mg/dL (7-18); Calcium 9.2 mg/dL (8.5-10.1); Carbon Dioxide 27 mmol/L (21-32); Chloride 101 mmol/L (98-108); Cholesterol 186 mg/dL (0-200); Creatine Kinase 94 U/L (26-192); Estimated Glomerular Filt Rate 43; Glucose 103 mg/dL (70-99); HDL Direct 85 mg/dL (40-60); LDL Cholesterol Calculated 87 mg/dL (<130); Osmolality Calculated 289 mOsm/kg (285-295); Potassium 4.3 mmol/L (3.5-5.1); Sodium 139 mmol/L (136-145); Total Protein 7.6 g/dL (6.4-8.2); Triglycerides 72 mg/dL (0-150); Uric Acid 4.5 mg/dL (2.6-6.0)
== END 2024-11-23 08:31 | disposition home or self-care (01) ==
LOC: CHSLAB 08:33
PROVIDERS: PCP Internal Medicine; Visit Provider Internal Medicine
DX: I10 Essential (primary) hypertension (principal); E78.2 Mixed hyperlipidemia; M81.0 Age-related osteoporosis without current pathological fracture; R73.01 Impaired fasting glucose; N18.2 Chronic kidney disease, stage 2 (mild); N39.0 Urinary tract infection, site not specified
CPT/HCPCS: 36415; 80053; 80061; 81001; 82043; 82550; 83036; 84550; 85025

== ENCOUNTER 2025-01-09 13:39 | Outpatient (CLI) | payer MEDICARE, SELFPAY ==
--- NOTE | ~2025-01-09 | DEXA_ITS ---
Bone Density Report Name: MISHEL OJEDA Age: 69 Sex: Female Ethnicity: White Date of : 1955 Indication: postmenopausal osteoporosis; monitoring treatment; parental hip fracture; hysterectomy; Referring Provider: Ibeth Roberson Study: Bone densitometry was performed. Exam Date: January 09, 2025 Accession number: [id number] Bone Density: Region BMD T-score Z-score Classification AP Spine(L1, L2, L3) 0.975 -0.4 1.6 Normal Femoral Neck (Left) 0.579 -2.4 -0.7 Osteopenia Total Hip (Left) 0.646 -2.4 -1.0 Osteopenia Femoral Neck (Right) 0.577 -2.5 -0.7 Osteoporosis Total Hip (Right) 0.651 -2.4 -0.9 Osteopenia Femoral Neck Mean 0.578 -2.4 -0.7 Osteopenia Total Hip Mean 0.649 -2.4 -0.9 Osteopenia World Health Organization criteria for BMD impression classify patients as: Normal (T-score at or above -1.0), Osteopenia (T-score between -1.0 and -2.5), or Osteoporosis (T-score at or below -2.5). 10-year Fracture Risk: FRAX not reported because: Some T-score for Spine Total or Hip Total or Femoral Neck at or below -2.5 Treated for osteoporosis Previous Exams: Region Exam Age BMD T-score BMD Change BMD Change Date g/cm2 vs Baseline vs Previous AP Spine (L1-L3) 01/09/2025 69 0.975 -0.4 0.035 (3.8%)* 0.035 (3.8%)* 01/06/2024 68 0.939 -0.7 Total Hip(Left) 01/09/2025 69 0.646 -2.4 0.017 (2.8%) 0.017 (2.8%) 01/06/2024 68 0.628 -2.6 Total Hip(Right) 01/09/2025 69 0.651 -2.4 0.006 (0.9%) 0.006 (0.9%) 01/06/2024 68 0.646 -2.4 *Denotes significance at 95% confidence level, LSC for AP Spine = 0.022 g/cm2, LSC for Total Hip = 0.027 g/cm2 Clinical Information Provided by Patient: Parent has had a hip fracture Smokes Is being treated for osteoporosis Has used the following medications: Prolia (i.e. denosumab), Vitamin D Has the following medical conditions: Hysterectomy Patient maximum height was 64.0 Menopause Age: 42 No regular weight bearing exercise Drinks caffeinated beverages Onset of menses at age 15 Number of children 2 Impression: The patient has osteoporosis, based on the Right Femoral Neck T-score. The patient has risk factors, including: parental hip fracture, smoking. No significant bone loss was observed. Discussion: PATIENT UNDER TREATMENT WITH NO SIGNIFICANT BMD LOSS SINCE LAST EXAM. In an untreated patient, BMD typically declines with age. A lack of decline or gain is usually a sign that treatment is efficacious and fracture risk is reduced. It is important to ask patients whether they are taking their medications and to encourage continued and appropriate compliance with their osteoporosis therapies to reduce fracture risk. It is also important to review their risk factors and encourage appropriate calcium and vitamin D intakes, exercise, fall prevention and other lifestyle measures. Follow-Up: Consider a repeat BMD and Vertebral Fracture Assessment (VFA) exam in 2 years or sooner if medically necessary, to reassess this patient's status. Reported by: GEO on 01/09/2025 2:21:00 PM. Reviewed, dictated and finalized at location A.
--- NOTE | ~2025-01-09 | MM_ITS ---
EXAMINATION: MM screening nadiya BI w silvia HISTORY: Screening TECHNIQUE: Craniocaudal and mediolateral oblique 3-D tomosynthesis images were obtained and synthetic 2-D images were generated. CAD analysis was submitted and interpreted. COMPARISON: Comparison to multiple prior studies sequentially, with oldest reviewed study dated 03/15. BREAST PARENCHYMAL COMPOSITION: Dense: The breasts are heterogeneously dense, which may obscure small masses FINDINGS: There is no evidence of suspicious mass, calcification, or architectural distortion to sugg est malignancy in either breast. There has been no suspicious interval change. IMPRESSION: 1. No mammographic evidence of malignancy. 2. Recommend routine screening mammography in one year. BI-RADS Category 1: Negative Reviewed, dictated and finalized at location A.
--- OUTSIDE RECORDS SUMMARY | 2025-01-09 15:32 | XMS_ITS | Clinical Summary ---
Author Organization [facility] Address [facility] [place] [address] Care Team Providers Care Melt Helper Name Role Phone Ibeth Roberson MD Primary Care Provider [phone] Alexandro Coffey MD Unavailable Unavailabl e Allergies [...] of 3) 11/28/2020 021, 11/21/2015 Pneumococcal Vaccine: 50+ Years (3 of 3 - PCV20 or PCV21) 02/24/2023 02/24/2018, 11/21/2015 COVID-19 Vaccine (3 - 2023-2 5 season) 2024 02/15/2021, 01/18/2021 DTaP, Tdap and Td Vaccines ( 2 [...] this topic Medical Devices Implanted Type Area Embedded Software Manager Device Identifier Shelf Expiration Date Model / Serial / Lot Libertad Dcb00 22.0 Implanted:Qty: 1 on 06/09/2023 by Betty Bui MD at [facility] Right: Eye [id number] 10/31/2025 DCB00 / [id number] / [id number] Insurance AET[employer] Advance Directives * Full Code (Latest Code Status on File) Date Activated Date Inactivated Comments 06/09/2023 2:59 PM 06/09/2023 5:43 PM Care Teams Melt Helper Relationship Specialty Start Date End Date Ibeth Roberson MD [address] [place] [address] PCP - General INTERNAL MEDICINE 01/19/22 Alexandro Coffey MD [address] [place] [address] [place] Employee Development Specialist CARDIOVASCULAR DISEASE 01/19/22
--- OUTSIDE RECORDS SUMMARY | 2025-01-09 15:32 | XMS_ITS | Encounter Summary ---
Author Organization [facility] Address [facility] [place] [address] Care Team Providers Care Dairy Equipment Repairer Name Role Phone Ibeth Roberson MD Primary Care Provider Alexandro Coffey MD Unavailable Unavailabl e Encounter Details Date Type Department Care Team (Late st Contact Info) Description 01/20/2022 [facility] [address] [place] [address] Alexandro Coffey MD Social History Tobacco Use [...] on filedocumented in this encounter Care Teams Dairy Equipment Repairer Relationship Specialty Start Date End Date Ibeth Roberson MD [address] [place] [address] PCP - General INTERNAL MEDICINE 01/19/22 Alexandro Coffey MD [address] [place] [address] [place] Bit Tripoler CARDIOVASCULAR DISEASE 01/19/22 documented as of this encounter
== END 2025-01-09 13:40 | disposition home or self-care (01) ==
LOC: CHSIMG 13:40
PROVIDERS: PCP Internal Medicine; Visit Provider Internal Medicine
DX: Z12.31 Encounter for screening mammogram for malignant neoplasm of breast (principal); Z78.0 Asymptomatic menopausal state; M85.89 Other specified disorders of bone density and structure, multiple sites; M81.0 Age-related osteoporosis without current pathological fracture
CPT/HCPCS: 77063; 77067; 77080

== ENCOUNTER 2025-01-11 08:56 | Outpatient (CLI) | payer MEDICARE, SELFPAY ==
[2025-01-11 09:01] VITALS: BMI 21.7
[2025-01-11 09:08] VITALS: BP 148/77; PULSE 76; RESP 16; TEMP 36.6; O2SAT 98
[2025-01-11] MEDS: DENOSUMAB 60 MG/ML SYRINGE SUB-Q (09:16)
--- OUTSIDE RECORDS SUMMARY | 2025-01-11 09:35 | XMS_ITS | Clinical Summary ---
Author Organization [facility] Address [facility] [place] [address] Care Team Providers Care Molding Engineer Name Role Phone Ibeth Roberson MD Primary Care Provider [phone] Alexandro Coffey MD Unavailable Unavailabl e Allergies [...] this topic Medical Devices Implanted Type Area Premises Technician Device Identifier Shelf Expiration Date Model / Serial / Lot Libertad Dcb00 22.0 Implanted:Qty: 1 on 06/09/2023 by Betty Bui MD at [facility] Right: Eye [id number] 10/31/2025 DCB00 / [id number] / [id number] Insurance AETNA Advance Directives * Full Code (Latest Code Status on File) Date Activated Date Inactivated Comments 06/09/2023 2:59 PM 06/09/2023 5:43 PM Care Teams Molding Engineer Relationship Specialty Start Date End Date Ibeth Roberson MD [address] [place] [address] PCP - General INTERNAL MEDICINE 01/19/22 Alexandro Coffey MD [address] [place] [address] [place] Roof Slater CARDIOVASCULAR DISEASE 01/19/22
--- OUTSIDE RECORDS SUMMARY | 2025-01-11 09:35 | XMS_ITS | Encounter Summary ---
Author Organization [facility] Address [facility] [place] [address] Care Team Providers Care Algorithm Developer Name Role Phone Ibeth Roberson MD Primary Care Provider [phone] Alexandro Coffey MD Unavailable Unavailabl e Encounter Details Date Type Department Care Team (Late st Contact Info) Description 01/20/2022 [facility] [address] [place] [address] Alexandro Coffey MD Social History Tobacco Use [...] on filedocumented in this encounter Care Teams Algorithm Developer Relationship Specialty Start Date End Date Ibeth Roberson MD [address] [place] [address] PCP - General INTERNAL MEDICINE 01/19/22 Alexandro Coffey MD [address] [place] [address] [place] Order Analyst CARDIOVASCULAR DISEASE 01/19/22 documented as of this encounter
--- NOTE | 2025-01-11 09:55 | PC.NURSE ---
Patient here for every 6 month Prolia injection. This is 3rd injection. Reports no problems with other 3. Education given. No concerns voiced. Injection administered. SEE MAR/patient care notes. Tolerated well.
== END 2025-01-11 08:57 | disposition home or self-care (01) ==
PROVIDERS: PCP Internal Medicine; Visit Provider Internal Medicine
DX: M81.0 Age-related osteoporosis without current pathological fracture (principal)
CPT/HCPCS: 96372; J0897

== ENCOUNTER 2025-05-29 08:07 | Outpatient (CLI) | payer MEDICARE, SELFPAY ==
[2025-05-29 08:24] LABS: Hematocrit 39.0 % (35.0-42.0); Hemoglobin 13.0 g/dL (11.7-13.8); Immature Granulocyte Percent A 0.6 % (0.0-0.0); Lymphocytes Absolute Auto 2.80 K/mm3 (1.10-4.50); Mean Corpuscular HGB Conc 33.3 g/dL (32-36); Mean Corpuscular Hemoglobin 30.1 pg (27.0-31.0); Mean Corpuscular Volume 90.3 fL (78.0-102.0); Nucleated Red Blood Cells Absolute Auto 0.00 K/mm3 (0.00-0.00); Nucleated Red Blood Cells Perc 0.0 % (0-0.0); Platelet Count Result 267 K/mm3 (150-420); Red Blood Count 4.32 M/mm3 (4.20-5.40); White Blood Count 8.2 K/mm3 (4.8-10.8)
[2025-05-29 08:39] LABS: Hemoglobin A1C 5.0 % (<5.7)
[2025-05-29 08:49] LABS: Alanine Aminotransferase 13 U/L (6-35); Albumin Level 4.8 g/dL (3.5-5.1); Alkaline Phosphatase 73 U/L (38-126); Anion Gap 11 mmol/L (4-12); Aspartate Amino Transferase 32 U/L (14-36); Bilirubin,Total 0.7 mg/dL (0.2-1.3); Blood Urea Nitrogen 10 mg/dL (7-17); Calcium 10.2 mg/dL (8.4-10.2); Carbon Dioxide 28 mmol/L (22-30); Chloride 96 mmol/L (98-107); Cholesterol 206 mg/dL (0-200); Creatine Kinase 93 U/L (30-135); Estimated Glomerular Filt Rate 54; Glucose 122 mg/dL (65-110); Iron 85 ug/dL (37-170); Osmolality Calculated 280 mOsm/kg (285-295); Potassium 4.4 mmol/L (3.4-5.0); Sodium 135 mmol/L (137-145); Total Protein 7.7 g/dL (6.3-8.2); Triglycerides 75 mg/dL (<150); Uric Acid 4.1 mg/dL (2.5-7.5)
[2025-05-29 08:51] LABS: HDL Direct > 110 mg/dL
[2025-05-29 09:07] LABS: Free T4 Free Thyroxine 1.69 ng/dL (0.78-2.19)
[2025-05-29 09:20] LABS: Thyroid Stimulating Hormone 1.390 uIU/mL (0.465-4.680)
[2025-05-29 09:24] LABS: Ferritin 148.00 ng/mL (11.1-264)
[2025-05-29 10:49] LABS: Add Urine Microscopic? NO; Appearance Urine Clear (Clear); Glucose Urine UA Negative (Negative); Leukocyte Esterase Ur Negative LEU/UL (Negative); Nitrate Urine Negative (Negative); Specific Grav Ur <= 1.005 (1.010-1.020)
[2025-05-29 11:01] LABS: MALB Creatinine Ratio 156.9 mg/g (0-30)
== END 2025-05-29 08:08 | disposition home or self-care (01) ==
LOC: CHSLAB 08:11
PROVIDERS: PCP Internal Medicine; Visit Provider Internal Medicine
DX: E87.1 Hypo-osmolality and hyponatremia (principal); E78.2 Mixed hyperlipidemia; J44.1 Chronic obstructive pulmonary disease with (acute) exacerbation; N18.2 Chronic kidney disease, stage 2 (mild); M81.0 Age-related osteoporosis without current pathological fracture; N39.0 Urinary tract infection, site not specified; R73.01 Impaired fasting glucose; I12.9 Hypertensive chronic kidney disease with stage 1 through stage 4 chronic kidney disease, or unspecified chronic kidney disease
CPT/HCPCS: 36415; 80053; 80061; 81003; 82043; 82306; 82550; 82728; 83036; 83540; 83970; 84439; 84443; 84550; 85025

== ENCOUNTER 2025-07-16 09:05 | Outpatient (CLI) | payer MEDICARE, SELFPAY ==
[2025-07-16 09:15] VITALS: BP 153/69; PULSE 78; RESP 14; TEMP 36.6; O2SAT 98; BMI 21.7
[2025-07-16] MEDS: DENOSUMAB 60 MG/ML SYRINGE SUB-Q (09:19)
[2025-07-16 09:34] VITALS: BP 145/69
--- OUTSIDE RECORDS SUMMARY | 2025-07-16 09:50 | XMS_ITS | Encounter Summary ---
Author Organization [facility] Address [address] [place] [address] Care Team Providers Care Search Advertising Strategist Name Role Phone Ibeth Roberson MD Primary Care Provider [phone] Alexandro Coffey MD Unavailable Unavailabl e Encounter Details Date Type Department Care Team (Late st Contact Info) Description 01/20/2022 [facility] [place] [facility] [address] [place] [address] Alexandro Coffey MD Social History Tobacco Use [...] Information Value Date Recorded Sex Assigned at Female 07/05/2025 9:04 AM CDT Legal Sex Female 3:00 PM CDT Gender [...] on filedocumented in this encounter Care Teams Search Advertising Strategist Relationship Specialty Start Date End Date Ibeth Roberson MD [address] [place] [address] PCP - General INTERNAL MEDICINE 01/19/22 Alexandro Coffey MD [address] [place] [address] [place] Rotating Equipment Specialist CARDIOVASCULAR DISEASE 01/19/22 documented as of this encounter
--- OUTSIDE RECORDS SUMMARY | 2025-07-16 09:50 | XMS_ITS | Clinical Summary ---
Author Organization [facility] Address [address] [place] [address] Care Team Providers Care Dump Truck Driver Off [address] Name Role Phone Ibeth Houston MD Primary Care Provider [phone] Alexandro Coffey MD Unavailable Unavailabl e Allergies [...] Noted Date Diagnosed Date Uncontrolled hypertension 01/21/2022 Encounters Date Type Department Care Team Description 07/05/2025 9:09 AM CDT - 07/05/2025 11:59 PM CDT Hospital Encounter [facility] [address] [place] [address] Ibeth Houston MD Discharge Disposition: Home or Self Care (Routine Discharge) 07/05/2025 Travel from Last 3 Months Family History Medical History Relation Comments Hyperlipidemia [...] 2:13 PM CDT Height 162.6 cm (5' 4) 06/04/2023 2:13 PM CDT Body Mass Index 21.63 06/04/2023 2:13 PM CDT Plan of Treatment Health Maintenance Due Date Last Done Comments Colorectal Cancer Screening Colonoscopy (10 Years) 1955 Hepatitis C 1973 Mammogram Screening 1995 Annual Medicare Wellness Visit 2020 Dexa Scan (General) 2020 Zoster Vaccines (3 of 3) 11/28/2020 10/03/2020, 0311/2015 Pneumococcal Vaccine: 50+ Years (3 of 3 - PCV20 or PCV21) 02/24/2023 02/24/2018, 11/21/2015 COVID-19 Vaccine (3 - season) 2025 02/15/2021, 02/15/2021, 01/18/2021, Additional history exists Influenza Adult (#1) 2025 06/04/2020, 08/19/2017, 07/09/2016 DTaP, Tdap and Td Vaccines (2 - Td or Tdap) 11/20/2025 11/21/2015 RSV Immunization or 60+ Years (1 - 1-dose 75+ series) 2030 Hepatitis A Vaccines Aged Out No long er eligible based on patient's age to complete this topic Meningococcal B Vaccine Aged Out No l onger eligible based on patient's age to complete this topic Meningococcal Vaccine Aged Out No osmel dennis eligible based on patient's age to complete this topic RSV Immunizations Under 20 Months Aged Out No longer eligible based on patient's age to complete this topic Medical Devices Implanted Type Area Derrick Follower Device Identifier Shelf Expiration Date Model / Serial / Lot [employer] Dcb00 22.0 Implanted:Qty: 1 on 06/09/2023 by Betty Bui MD at [facility] Right: Eye [id number] 10/31/2025 DCB00 / [id number] / [id number] Procedures Procedure Name Priority Date/Time Associated Diagnosis Comments CTA HEAD+NECK Routine 07/05/2025 10:13 AM CDT Bilateral carotid artery stenosis CREATININE Routine 07/05/2025 9:25 AM CDT from Last 3 Months Results * CTA HEAD+NECK (07/05/2025 10:13 AM CDT) Anatomical Region Laterality Modality Head, Neck Computed Tomogra phy 07/13/2025 1:21 PM CDT Impressions 07/13/2025 1:37 PM CDT IMPRESSION: HEAD CTA: No focal canal stenosis, large vessel occlusion or aneurysm. NECK CTA: 1. 76% stenosis of the mid to distal left common carotid artery due to calcified plaque, mildly increased compared to the prior CT of 2022, possibly due to differences in technique and measurement. 2. 51% stenosis of the proximal right internal carotid artery, not significantly changed. 3. Severe stenosis of the origin of the right vertebral artery, unchanged. 4. No measurable left vertebral artery stenosis. Referred By: IBETH HOUSTON Interpreted By: Abhishek Burch MD, 07/13/2025 1:21 PM Narrative 07/13/2025 1:37 PM CDT [place] [id number] [facility] [place] [address] EXAMINATION: CT angiogram of the neck with contrast 07/05/2025 INDICATION: Bilateral carotid artery stenosis TECHNIQUE: Axial CT images of the head and neck were acquired following demonstration of a 96 mL Isovue-370 contrast intravenously. Axial sagittal and coronal reformats were constructed. Radiation dose reduction techniques were used. 3D MIPS were constructed. Carotid stenosis is reported according to NASCET criteria. COMPARISON: CT angiogram of the head and neck 06/21/2023 FINDINGS:HEAD CTA: No acute intracranial hemorrhage within limits of a contrast enhanced head CT. No mass effect or midline shift or extra-axial fluid collection. No ventriculomegaly, sulcal effacement or loss krause/white matter differentiation No acute osseous abnormality. The paranasal sinuses and mastoid air cells are clear. There is opacification of the intracranial internal carotid, vertebral and basilar arteries. There is opacification of the anterior, middle and posterior cerebral arteries. No focal intracranial stenosis, large vessel occlusion or aneurysm. There is opacification the superior sagittal sinus, internal cerebral veins, vein of Shay, straight sinus, transverse sinuses and sigmoid sinuses. No abnormal enhancement NECK CTA: Calcified plaque noted within the aortic arch. The origins of great vessels are unremarkable. Plaque noted within the innominate and proximal subclavian arteries. The right, coronary is unremarkable. Calcified plaque noted the right carotid bifurcation and proximal right internal carotid artery causing stenosis measuring up to 51%, not significantly changed allowing for differences in technique and measurement. There is a eccentric calcified plaque within the mid to distal left common carotid artery causing stenosis measuring up to 76%, mildly increased in. There is calcified plaque at the left carotid bifurcation proximal left internal carotid artery causing stenosis measuring up to 38%, unchanged. The vertebral arteries are opacified. The left vertebral artery arises directly from the aortic arch. There is severe stenosis at the origin the right vertebral artery, unchanged. The right vertebral artery is dominant. No measurable left vertebral artery stenosis. No dissection flap or evidence of aneurysm within the neck. No acute abnormality the visualized lung apices. Multiple moderate disc space narrowing, uncovertebral arthropathy and facet arthropathy noted throughout the cervical spine. The right gland is unremarkable. Procedure Note Abhishek Burch MD - 07/13/2025 [place] [id number] [facility] [place] [address] EXAMINATION: CT angiogram of the neck with contrast 07/05/2025 INDICATION: Bilateral carotid artery stenosis TECHNIQUE: Axial CT images of the head and neck were acquired followingdemonstration of a 96 mL Isovue-370 contrast intravenously. Axialsagittal and coronal reformats were constructed. Radiation dose reductiontechniques were used. 3D MIPS were constructed. Carotid stenosis isreported according to NASCET criteria. COMPARISON: CT angiogram of the head and neck 06/21/2023 FINDINGS:HEAD CTA: No acute intracranial hemorrhage within limits of acontrast enhanced head CT. No mass effect or midline shift or extra-axialfluid collection. No ventriculomegaly, sulcal effacement or lossgray/white matter differentiation No acute osseous abnormality. The paranasal sinuses and mastoid air cellsare clear. There is opacification of the intracranial internal carotid, vertebral andbasilar arteries. There is opacification of the anterior, middle andposterior cerebral arteries. No focal intracranial stenosis, large vessel occlusion or aneurysm. There is opacification the superior sagittal sinus, internal cerebralveins, vein of Shay, straight sinus, transverse sinuses and sigmoidsinuses. No abnormal enhancement NECK CTA: Calcified plaque noted within the aortic arch. The origins ofgreat vessels are unremarkable. Plaque noted within the innominate andproximal subclavian arteries. The right, coronary is unremarkable. Calcified plaque noted the rightcarotid bifurcation and proximal right internal carotid artery causingstenosis measuring up to 51%, not significantly changed allowing fordifferences in technique and measurement. There is a eccentric calcified plaque within the mid to distal left commoncarotid artery causing stenosis measuring up to 76%, mildly increased in.There is calcified plaque at the left carotid bifurcation proximal leftinternal carotid artery causing stenosis measuring up to 38%, unchanged. The vertebral arteries are opacified. The left vertebral artery arisesdirectly from the aortic arch. There is severe stenosis at the origin theright vertebral artery, unchanged. The right vertebral artery isdominant. No measurable left vertebral artery stenosis. No dissectionflap or evidence of aneurysm within the neck. No acute abnormality the visualized lung apices. Multiple moderate disc space narrowing, uncovertebral arthropathy andfacet arthropathy noted throughout the cervical spine. The right gland isunremarkable. IMPRESSION: HEAD CTA: No focal canal stenosis, large vessel occlusion or aneurysm. NECK CTA: 1. 76% stenosis of the mid to distal left common carotid artery due tocalcified plaque, mildly increased compared to the prior CT of 2022,possibly due to differences in technique and measurement. 2. 51% stenosis of the proximal right internal carotid artery, notsignificantly changed. 3. Severe stenosis of the origin of the right vertebral artery,unchanged. 4. No measurable left vertebral artery stenosis. Referred By: IBETH HOUSTON Interpreted By: Abhishek Burch MD, 07/13/2025 1:21 PM us Ibeth Houston MD CT Final Result * (ABNORMAL) CREATININE (07/05/2025 9:25 AM CDT) CREATININE S/P/B 1.02 0.55 - 1.02 MG/DL 07/05/2025 9:40 AM CDT [facility] GFR ESTIMATE 60(L) >89 ML/MIN/1. 73 M2 07/05/2025 9:40 AM CDT [facility] GFR NOTES GFR REFERENCE S: 07/05/2025 9:40 AM CDT [facility] Comment: THE ESTIMATED GFR IS CALCULATED USING THE 2020 CKD-EPI EQUATION. THE FOLLOWING CATEGORIES FOR GRADING RENAL FUNCTION ARE RECOMMENDED BY THE INTERNATIONAL SOCIETY OF NEPHROLOGY (KDIGO 2012 CLINICAL PRACTICE GUIDELINE). G1,NORMAL OR HIGH: >89 ml/min/1.73 m2 G2,MILDLY DECREASED: 60-89 ml/min/1.73 m2 G3A,MILDLY TO MODERATELY DECREASED: 45-59 ml/min/1.73 m2 G3B,MODERATELY TO SEVERELY DECREASED: 30-44 ml/min/1.73 m2 G4,SEVERELY DECREASED: 15-29 ml/min/1.73 m2 G5,KIDNEY FAILURE: <15 ml/min/1.73 m2 07/05/2025 9:25 AM CDT us Ibeth Houston MD LABORATORY Final Result [facility] [address] [place] [address], from Last 3 Months Insurance [employer] MEDICARE Advance Directives * Full Code (Latest Code Status on File) Date Activated Date Inactivated Comments 06/09/2023 2:59 PM 06/09/2023 5:43 PM Care Teams Dump Truck Driver Off Highway Relationship Specialty Start Date End Date Ibeth Houston MD [address] [place] [address] PCP - General INTERNAL MEDICINE 01/19/22 Alexandro Coffey MD [address] [place] [address] [place] [employer] CARDIOVASCULAR DISEASE 01/19/22
== END 2025-07-16 09:06 | disposition home or self-care (01) ==
PROVIDERS: PCP Internal Medicine; Visit Provider Internal Medicine
DX: M81.0 Age-related osteoporosis without current pathological fracture (principal)
CPT/HCPCS: 96372; J0897